=== PATIENT | male | born 1985 | race African-American/Black ===

== ENCOUNTER 2016-07-21 10:34 | Inpatient (IN) | payer OTHER ==
[2016-07-21 11:08] VITALS: BMI 37.5
--- NOTE | 2016-07-21 12:03 | HP ---
CIWA Score - CIWA Score Nausea/Vomitin-Mild Nausea/No Vomiting Muscle Tremors: 2 Anxiety: 4-Mod. Anxious/Guarded Agitation: 1-Slight > Activity Paroxysmal Sweats: 1-Minimal Palms Moist Orientation: 0-Oriented Tacttile Disturbances: 1-Very Mild Itch/Numbness Auditory Disturbances: 2-Mild Harshness/Frighten Visual Disturbances: 2-Mild Sensitivity Headache: 2-Mild CIWA-Ar Total Score: 16 Admission ROS BHS - HPI Chief Complaint: My chief technology officer said I need to be here Allergies/Adverse Reactions: Allergies Allergy/AdvReac Type Severity Reaction Status Date / Time Pork/Porcine Containing AdvReac Severe Nausea Verified 07/21/16 11:39 Products trazodone AdvReac Severe priapism Verified 07/21/16 11:39 History of Present Illness: 31 yo black gentleman here for detox from alcohol and crack use. Recently released from care home, relapsed with drugs use and chief technology officer recommended drug treatment. Previously here for detox and rehab - most recently 05/27/16. No seizures. Exam Limitations: Clinical Condition - Ebola screening Have you traveled outside of the country in the last 21 days: No Have you had contact with anyone from an Ebola affected area: No Have you been sick,other than usual withdrawal symptoms: No Do you have a fever: No - Review of Systems Constitutional: Chills, Loss of Appetite, Night Sweats, Changes in sleep, Weight Stable EENT: reports: Nose Congestion Respiratory: reports: Cough Cardiac: reports: No Symptoms Reported GI: reports: No Symptoms Reported : reports: No Symptoms Reported Musculoskeletal: reports: Back Pain Integumentary: reports: Dryness Neuro: reports: Headache Endocrine: reports: No Symptoms Reported Hematology: reports: No Symptoms Reported Psychiatric: reports: Judgement Intact, Mood/Affect Appropiate, Orientated x3, Anxious Other Systems: Reviewed and Negative Patient History - Patient Medical History Hx Anemia: No Hx Asthma: Yes Hx Chronic Obstructive Pulmonary Disease (COPD): No Hx Cancer: No Hx Cardiac Disorders: No Hx Congestive Heart Failure: No Hx Hypertension: No Hx Hypercholesterolemia: No Hx Pacemaker: No HX Cerebrovascular Accident: No Hx Seizures: Yes (as teenager due to head trauma) Hx Dementia: No Hx Diabetes: No Hx Gastrointestinal Disorders: No Hx Liver Disease: No Hx Genitourinary Disorders: No Hx Sexually Transmitted Disorders: No Hx Renal Disease (ESRD): No Hx Thyroid Disease: No Hx Human Immunodeficiency Virus (HIV): No (last 2016 negative) Hx Hepatitis C: No Hx Depression: No Hx Suicide Attempt: Yes (about 4 years ago - hospitalized) Hx Bipolar Disorder: Yes (WAS ON ABILIfY MANY YEARS AGO) Hx Schizophrenia: Yes Other Medical History: back pain, sciatica - Patient Surgical History Past Surgical History: Yes Hx Neurologic Surgery: No Hx Cataract Extraction: No Hx Cardiac Surgery: No Hx Lung Surgery: No Hx Breast Surgery: No Hx Breast Biopsy: No Hx Abdominal Surgery: No Hx Appendectomy: No Hx Cholecystectomy: No Hx Genitourinary Surgery: No Hx Section: No Hx Orthopedic Surgery: Yes (LEFT KNEE,TORN ACL AND MENISCUS since age 8 years) Anesthesia Reaction: No - PPD History Date: 05/29/16 Results: 0 mm - Reproductive History Patient is a Female of Child Bearing Age (11 -55 yrs old): No (male) - Smoking Cessation Smoking history: Current every day smoker Have you smoked in the past 12 months: Yes Aproximately how many cigarettes per day: 35 Cigars Per Day: 15 Hx Chewing Tobacco Use: No Initiated information on smoking cessation: Yes 'Breaking Loose' booklet given: 07/21/16 (given on admission to floor) - Substance & Tx. History Hx Alcohol Use: Yes Hx Substance Use: Yes Substance Use Type: Alcohol, Cocaine Hx Substance Use Treatment: Yes (detox, rehab) - Substances Abused Alcohol Route: Oral Frequency: Daily Amount used: beer2-3I(24 oz cans/2 -40 oz)/vodka(1-2 Pint) Age of first use: 13 Date of Last Use: 07/20/16 Crack Route: Smoking Frequency: Daily Amount used: $5000 per week Age of first use: 23 Date of Last Use: 07/20/16 Family Disease History - Family Disease History Family Disease History: Other: Father ( ? unkown), Mother (sciatica, ) Admission Physical Exam S - Vital Signs Vital Signs: Vital Signs - 24 hr 07/21/16 11:06 Temperature 97.9 F Pulse Rate 94 H Respiratory 20 Rate Blood Pressure 143/85 - Physical General Appearance: Yes: Nourished, Appropriately Dressed, Mild Distress HEENTM: Yes: Hearing grossly Normal, Normal ENT Inspection, Normocephalic, Normal Voice, Pharynx Normal, Nasal Congestion Respiratory: Yes: Normal Breath Sounds, No Respiratory Distress Neck: Yes: No masses,lesions,Nodules, Supple Breast: Yes: Breast Exam Deferred Cardiology: Yes: Regular Rhythm, Regular Rate Abdominal: Yes: Soft, Protuberent Genitourinary: Yes: Within Normal Limits Back: Yes: Normal Inspection Musculoskeletal: Yes: full range of Motion, Gait Steady Extremities: Yes: Normal Inspection, Normal Range of Motion Neurological: Yes: Fully Oriented, Alert, Normal Mood/Affect, Numbness, Other ( numbness of left leg sometimes due to sciatica) Integumentary: Yes: Normal Color, Dry, Warm Lymphatic: Yes: Within Normal Limits - Diagnostic (1) Obesity (BMI 30-39.9) Current Visit: Yes Status: Chronic (2) Alcohol dependence with uncomplicated withdrawal Current Visit: Yes Status: Chronic (3) Asthma Current Visit: Yes Status: Chronic Qualifiers: Asthma severity: mild intermittent (4) Cocaine dependence Current Visit: Yes Status: Chronic (5) Nicotine dependence Current Visit: Yes Status: Chronic (6) Sciatica Current Visit: Yes Status: Chronic Qualifiers: Laterality: left Qualified Code(s): M54.32 - Sciatica, left side Comment: takes gabapentin for sciatica (7) Syncope Current Visit: Yes Status: Chronic Cleared for Admission [facility] - Detox or Rehab [facility] Level of Care: Medically Managed Detox Regimen/Protocol: Librium [facility] Breath Alcohol Content Breath Alcohol Content: 0.045 Urine Drug Screen - Results Drug Screen Negative: No Urine Drug Screen Results: RICCARDO-Cocaine
[2016-07-21] MEDS ORDERED: diphenhydrAMINE HCL 50 MG CAPSULE PO PRN (12:17)
[2016-07-21] MEDS ORDERED: chlordiazePOXIDE HCL 25 MG CAPSULE PO ONE (12:17)
[2016-07-21] MEDS ORDERED: MAGNESIUM CITRATE 300 ML BOTTLE PO PRN (12:17)
[2016-07-21] MEDS ORDERED: hydrOXYzine PAMOATE 50 MG CAPSULE (FP) PO PRN (12:17)
[2016-07-21] MEDS ORDERED: LOPERAMIDE HCL 2 MG CAPSULE PO PRN (12:17)
[2016-07-21] MEDS ORDERED: guaiFENesin/D-METHORPHAN HB 10 ML UNIT-DOSE CUPS PO PRN (12:17)
[2016-07-21] MEDS ORDERED: MAGNESIUM HYDROX 2400MG/30ML ORAL SUSPENSION 30 ML CUP PO PRN (12:17)
[2016-07-21] MEDS ORDERED: ACETAMINOPHEN 325 MG TABLET (FP) PO PRN (12:17)
[2016-07-21] MEDS ORDERED: P-EPHED 60MG/TRIPROLIDI 2.5MG TABLET PO PRN (12:17)
[2016-07-21] MEDS ORDERED: chlordiazePOXIDE HCL 25 MG CAPSULE PO PRN (12:17)
[2016-07-21] MEDS ORDERED: ALBUTEROL SO4 6.7 GM HFA INHALER IH PRN (12:19)
[2016-07-21] MEDS: NICOTINE 21 MG/24 HOURS TOPICAL PATCH TD SCH (13:59)
[2016-07-21] MEDS: MENTHOL/PHENOL 1 EACH UD MM PRN ×2 (13:59→17:44)
[2016-07-21] MEDS: chlordiazePOXIDE HCL 25 MG CAPSULE PO SCH ×2 (17:40→23:09)
[2016-07-21] MEDS: IBUPROFEN 400 MG TABLET (FP) PO PRN (17:45)
[2016-07-21] MEDS: CYCLOBENZAPRINE HCL 10 MG TABLET (FP) PO PRN (17:45)
--- NOTE | 2016-07-21 18:13 | CONSULT ---
[facility] Psychiatric Consult - Data Date of interview: 07/21/16 Admission source: [facility] Identifying data: Readmission to [facility] for this 31 y/o AA male seeking detox treatment on [facility] for alcohol and cocaine dependence.Patient is single ( common-law relationship),a father of one,domiciled,unemployed and supporte on SSD benefits. Substance Abuse History: - Smoking Cessation. Smoking history: Current every day smoker. Have you smoked in the past 12 months: Yes. Aproximately how many cigarettes per day: 35. Cigars Per Day: 15. Hx Chewing Tobacco Use: No. Initiated information on smoking cessation: Yes. 'Breaking Loose' booklet given : 07/21/16 (given on admission to floor). - Substance & Tx. History. Hx Alcohol Use: Yes. Hx Substance Use: Yes. Substance Use Type: Alcohol, Cocaine. Hx Substance Use Treatment: Yes (detox, rehab). - Substances Abused. Alcohol. Route: Oral. Frequency: Daily. Amount used: beer2-3I(24 oz cans /2 -40 oz)/vodka(1-2 Pint). Age of first use: 13. Date of Last Use: 07/20/16. Crack. Route: Smoking. Frequency: Daily. Amount used: $5000 per week. Age of first use: 23. Date of Last Use: 07/20/16. Cnfirmed by patient. Medical History: Significant for a history of bronchial asthma,obesity,sciatica and orthosurgery for torn ACL/meniscus in left knee. Psychiatric History: Diagnosed with ADHD at age 3 (past treatment with ritalin) .Diagnosis was revised for Bipolar Disorder (age 18).Patient,in this interview, reports that he is diagnosed with " bipolar schizophrenic disorder " and PTSD.Noted history of multiple psychiatric hospitalizations ([facility] and [facility]).Recently admitted to [facility] (2013) for depression and suicidal ideation.Mr George admits to a well established history of non- adherence to medications and psychiatric outpatient services.Released from assisted a few weeks ago and mandated by his telecommunications officer for detox treatment.Patient states that he is on lithium carbonate 300 mg po bid.He sees a psychiatrist for medication management at the [facility].Has not taken his medication for " a little more over three weeks ".Patient remains evasive about history of suicide attempts (records yield evidence of multiple attempts via various means,including overdoses,self-mutilation and deliberate ingestion of toxic household chemicals). Physical/Sexual Abuse/Trauma History: Patient denies. Additional Comment: Urine Drug Screen Results: RICCARDO-Cocaine.Noted. Mental Status Exam - Mental Status Exam Alert and Oriented to: Time, Place, Person Cognitive Function: Good Patient Appearance: Well Groomed (tall stature,obese) Mood: Hopeful, Euthymic Affect: Appropriate, Normal Range Patient Behavior: Talkative, Appropriate, Cooperative Speech Pattern: Clear, Appropriate Voice Loudness: Normal Thought Process: Goal Oriented Thought Disorder: Not Present Hallucinations: Denies Suicidal Ideation: Denies Homicidal Ideation: Denies Insight/Judgement: Poor Sleep: Well Appetite: Good Muscle strength/Tone: Normal Gait/Station: Normal Psychiatric Findings - Problem List ([place] 1, 2,3) (1) Alcohol dependence with uncomplicated withdrawal Current Visit: Yes Status: Acute (2) Cocaine dependence Current Visit: Yes Status: Acute (3) Nicotine dependence Current Visit: Yes Status: Acute (4) Drug-induced mood disorder Current Visit: Yes Status: Acute (5) Schizoaffective disorder Current Visit: No Status: Suspected (6) Asthma Current Visit: Yes Status: Chronic Qualifiers: Asthma severity: mild intermittent (7) Obesity (BMI 30-39.9) Current Visit: Yes Status: Chronic (8) Sciatica Current Visit: Yes Status: Chronic Qualifiers: Laterality: left Qualified Code(s): M54.32 - Sciatica, left side Comment: takes gabapentin for sciatica (9) L4-L5 disc bulge Current Visit: No Status: Chronic (10) Non compliance w medication regimen Current Visit: Yes Status: Chronic - Initial Treatment Plan Initial Treatment Plan: Psychoeducation.Detoxification.[place] 300 mg po bid ( on hold until results of basic metabolic panel :electrolytes,renal function parameters).Side effects/benefits discussed with patient including risk of renal dysfunction,thyroid dysregulation,weight gain and cardiac issues.Patient responds that lithium is familiar medication (well tolerated) and he insists to resume care with lithium after a reported hiatus of three weeks.[place] level: pending.
[2016-07-21 19:12] LABS: URINE APPEARANCE CLEAR; URINE BILIRUBIN NEGATIVE (NEGATIVE); URINE BLOOD NEGATIVE (NEGATIVE); URINE COLOR YELLOW; URINE GLUCOSE (UA) NEGATIVE (NEGATIVE); URINE KETONE NEGATIVE (NEGATIVE); URINE LEUK ESTERASE NEGATIVE (NEGATIVE); URINE NITRITE NEGATIVE (NEGATIVE); URINE PROTEIN NEGATIVE (NEGATIVE); URINE UROBILINOGEN 2.0 E.U/dl E.U./dl (0.2-1.0)
[2016-07-21] MEDS: GABAPENTIN 400 MG CAPSULE (FP) PO SCH (23:09)
[2016-07-21] MEDS: THIAMINE HCL 100 MG TABLET (FP) PO SCH (23:09)
[2016-07-22] MEDS: chlordiazePOXIDE HCL 25 MG CAPSULE PO SCH ×4 (06:08→22:49)
[2016-07-22 10:22] LABS: MCH 29.7 pg (25.7-33.7); MCHC 32.4 g/dl (32.0-35.9); MEAN CELL VOLUME 91.6 fl (80-96); MEAN PLT VOLUME 7.9 fl (7.5-11.1); PLATELET COUNT 260 K/MM3 (134-434); RDW 15.1 % (11.9-15.9); WHITE BLOOD COUNT 6.9 K/mm3 (4.0-10.0)
[2016-07-22] MEDS: NICOTINE 21 MG/24 HOURS TOPICAL PATCH TD SCH (10:24)
[2016-07-22] MEDS: PRENATAL VITAMINS W/ FOLIC ACID TABLET (FP) PO SCH (10:24)
[2016-07-22] MEDS: GABAPENTIN 400 MG CAPSULE (FP) PO SCH ×2 (10:24→22:49)
[2016-07-22 10:43] LABS: ALBUMIN 3.2 g/dl (3.4-5.0); ALK PHOS 65 U/L (45-117); ANION GAP 5 (8-16); BILIRUBIN,TOTAL 0.2 mg/dL (0.2-1.0); CALCIUM 8.6 mg/dL (8.5-10.1); CO2 29 mmol/L (21-32); CREATININE 0.7 mg/dL (0.7-1.3); GLUCOSE,RANDOM 91 mg/dL (74-106); SGOT/AST 32 U/L (15-37); SGPT/ALT 26 U/L (12-78); TOT PROT 6.4 g/dl (6.4-8.2)
[2016-07-22 11:32] LABS: HIV 1 & 2 AB NEGATIVE; HIV 1 AGp24 NEGATIVE
--- NOTE | 2016-07-22 17:21 | PN ---
S CIWA - CIWA Score Nausea/Vomitin-Mild Nausea/No Vomiting Muscle Tremors: 4-Moderate,w/Arms Extend Anxiety: 4-Mod. Anxious/Guarded Agitation: 4-Moderately Restless Paroxysmal Sweats: No Perspiration Orientation: 0-Oriented Tacttile Disturbances: 1-Very Mild Itch/Numbness Auditory Disturbances: 0-None Visual Disturbances: 0-None Headache: 3-Moderate CIWA-Ar Total Score: 17 BHS Progress Note (SOAP) Subjective: Anxiety, sweating, nausea, tremor, interrupted sleep Objective: 07/22/16 17:20 Last Vital Signs Temp Pulse Resp BP Pulse Ox 97.0 F L 83 20 137/93 07/22/16 14:15 07/22/16 14:15 07/22/16 14:15 07/22/16 14:15 Laboratory Tests 07/21/16 07/22/16 07/22/16 Unknown 08:00 08:00 WBC 6.9 RBC 4.29 Hgb 12.8 Hct 39.3 MCV 91.6 MCHC 32.4 RDW 15.1 Plt Count 260 D MPV 7.9 Sodium Potassium Chloride Carbon Dioxide Anion Gap BUN Creatinine Creat Clearance w eGFR Random Glucose Calcium Total Bilirubin AST ALT Alkaline Phosphatase Total Protein Albumin Urine Color Yellow Urine Appearance Clear Urine pH 5.0 Ur Specific [place] 1.029 Urine Protein Negative Urine Glucose (UA) Negative Urine Ketones Negative Urine Blood Negative Urine Nitrite Negative Urine Bilirubin Negative Urine Urobilinogen 2.0 e.u/dl Ur Leukocyte Esterase Negative RPR Titer HIV 1&2 Antibody Screen Negative HIV P24 Antigen Negative 07/22/16 07/22/16 08:00 08:00 WBC RBC Hgb Hct MCV MCHC RDW Plt Count MPV Sodium 139 Potassium 4.2 Chloride 105 Carbon Dioxide 29 Anion Gap 5 L BUN 9 D Creatinine 0.7 D Creat Clearance w eGFR > 60 Random Glucose 91 Calcium 8.6 Total Bilirubin 0.2 D AST 32 D ALT 26 D Alkaline Phosphatase 65 Total Protein 6.4 Albumin 3.2 L Urine Color Urine Appearance Urine pH Ur Specific [place] Urine Protein Urine Glucose (UA) Urine Ketones Urine Blood Urine Nitrite Urine Bilirubin Urine Urobilinogen Ur Leukocyte Esterase RPR Titer Nonreactive HIV 1&2 Antibody Screen HIV P24 Antigen Labs noted Assessment: 07/22/16 17:21 Withdrawal symptoms Plan: Continue detox
[2016-07-22] MEDS: IBUPROFEN 400 MG TABLET (FP) PO PRN (17:51)
[2016-07-22] MEDS: MENTHOL/PHENOL 1 EACH UD MM PRN (17:51)
[2016-07-22] MEDS: CYCLOBENZAPRINE HCL 10 MG TABLET (FP) PO PRN (17:52)
[2016-07-22] MEDS: LITHIUM CARBONATE 300 MG CAPSULE (FP) PO SCH (22:49)
[2016-07-22] MEDS: THIAMINE HCL 100 MG TABLET (FP) PO SCH (22:49)
[2016-07-23] MEDS: chlordiazePOXIDE HCL 25 MG CAPSULE PO SCH ×2 (06:02→10:45)
[2016-07-23] MEDS: PRENATAL VITAMINS W/ FOLIC ACID TABLET (FP) PO SCH (10:45)
[2016-07-23] MEDS: LITHIUM CARBONATE 300 MG CAPSULE (FP) PO SCH ×2 (10:45→22:35)
[2016-07-23] MEDS: GABAPENTIN 400 MG CAPSULE (FP) PO SCH ×2 (10:45→22:35)
[2016-07-23] MEDS: NICOTINE 21 MG/24 HOURS TOPICAL PATCH TD SCH (10:47)
--- NOTE | 2016-07-23 10:57 | PN ---
S CIWA - CIWA Score Nausea/Vomitin-No Nausea/No Vomiting Muscle Tremors: 3 Anxiety: 3 Agitation: 4-Moderately Restless Paroxysmal Sweats: 3 Orientation: 0-Oriented Tacttile Disturbances: 2-Mild Itch/Numbness/Burn Auditory Disturbances: 0-None Visual Disturbances: 0-None Headache: 0-None Present CIWA-Ar Total Score: 15 BHS Progress Note (SOAP) Subjective: ANXIETY,TREMORS,SWEATING,LOW BACK PAIN,RESTLESS,INTERRUPTED SLEEP. Objective: 07/23/16 10:55 Vital Signs - 8 hr 07/23/16 07/23/16 07/23/16 03:21 06:20 10:23 Temperature 97.8 F 98.0 F Pulse Rate 95 H 109 H Respiratory 18 18 20 Rate Blood Pressure 132/81 138/83 Laboratory Tests 07/21/16 07/22/16 07/22/16 Unknown 08:00 08:00 WBC 6.9 RBC 4.29 Hgb 12.8 Hct 39.3 MCV 91.6 MCHC 32.4 RDW 15.1 Plt Count 260 D MPV 7.9 Sodium Potassium Chloride Carbon Dioxide Anion Gap BUN Creatinine Creat Clearance w eGFR Random Glucose Calcium Total Bilirubin AST ALT Alkaline Phosphatase Total Protein Albumin Urine Color Yellow Urine Appearance Clear Urine pH 5.0 Ur Specific [place] 1.029 Urine Protein Negative Urine Glucose (UA) Negative Urine Ketones Negative Urine Blood Negative Urine Nitrite Negative Urine Bilirubin Negative Urine Urobilinogen 2.0 e.u/dl Ur Leukocyte Esterase Negative RPR Titer HIV 1&2 Antibody Screen Negative HIV P24 Antigen Negative 07/22/16 07/22/16 08:00 08:00 WBC RBC Hgb Hct MCV MCHC RDW Plt Count MPV Sodium 139 Potassium 4.2 Chloride 105 Carbon Dioxide 29 Anion Gap 5 L BUN 9 D Creatinine 0.7 D Creat Clearance w eGFR > 60 Random Glucose 91 Calcium 8.6 Total Bilirubin 0.2 D AST 32 D ALT 26 D Alkaline Phosphatase 65 Total Protein 6.4 Albumin 3.2 L Urine Color Urine Appearance Urine pH Ur Specific [place] Urine Protein Urine Glucose (UA) Urine Ketones Urine Blood Urine Nitrite Urine Bilirubin Urine Urobilinogen Ur Leukocyte Esterase RPR Titer Nonreactive HIV 1&2 Antibody Screen HIV P24 Antigen LABS NOTED Assessment: 07/23/16 10:55 WITHDRAWAL SX. Plan: CONTINUE DETOX
[2016-07-23] MEDS: LIDOCAINE 5% TOPICAL PATCH TP SCH (11:10)
[2016-07-23 14:11] LABS: LITHIUM < 0.1 mmol/L (0.6-1.4)
[2016-07-23] MEDS: chlordiazePOXIDE 5 MG CAPSULE PO SCH (17:29)
[2016-07-23] MEDS: MAG HYDROX/AL HYDROX/SIMETH 30 ML UNIT-DOSE CUP PO PRN (19:48)
[2016-07-23] MEDS: THIAMINE HCL 100 MG TABLET (FP) PO SCH (22:36)
[2016-07-24] MEDS: chlordiazePOXIDE 5 MG CAPSULE PO SCH (05:50)
--- NOTE | 2016-07-24 10:02 | PN ---
BHS Progress Note (SOAP) Subjective: SLIGHT ANXIETY, SWEATS,FATIGUE. Objective: 07/24/16 10:02 Vital Signs Temperature 98.9 F 07/24/16 09:52 Pulse Rate 99 H 07/24/16 09:52 Respiratory Rate 20 07/24/16 09:52 Blood Pressure 124/78 07/24/16 09:52 O2 Sat by Pulse Oximetry (%) Assessment: 07/24/16 10:02 WITHDRAWAL SX Plan: CONTINUE DETOX
[2016-07-24] MEDS: PRENATAL VITAMINS W/ FOLIC ACID TABLET (FP) PO SCH (10:39)
[2016-07-24] MEDS: LITHIUM CARBONATE 300 MG CAPSULE (FP) PO SCH ×2 (10:39→22:29)
[2016-07-24] MEDS: GABAPENTIN 400 MG CAPSULE (FP) PO SCH ×2 (10:39→22:29)
[2016-07-24] MEDS: NICOTINE 21 MG/24 HOURS TOPICAL PATCH TD SCH (10:40)
[2016-07-24] MEDS: LIDOCAINE 5% TOPICAL PATCH TP SCH (10:40)
[2016-07-24] MEDS: chlordiazePOXIDE HCL 10 MG CAPSULE PO SCH ×2 (17:33→22:29)
[2016-07-24] MEDS: THIAMINE HCL 100 MG TABLET (FP) PO SCH (22:29)
[2016-07-24 23:02] VITALS: BP 129/77; PULSE 99; TEMP 97
[2016-07-25] MEDS: chlordiazePOXIDE HCL 10 MG CAPSULE PO SCH (05:40)
[2016-07-25] MEDS: IBUPROFEN 400 MG TABLET (FP) PO PRN (05:43)
[2016-07-25] MEDS: CYCLOBENZAPRINE HCL 10 MG TABLET (FP) PO PRN (05:43)
[2016-07-25] MEDS: MAG HYDROX/AL HYDROX/SIMETH 30 ML UNIT-DOSE CUP PO PRN (05:44)
--- NOTE | 2016-07-25 09:42 | EKG ---
Test Reason : Blood Pressure : / mmHG Vent. Rate : 084 BPM Atrial Rate : 084 BPM P-R Int : 178 ms QRS Dur : 088 ms QT Int : 394 ms P-R-T Axes : 043 011 030 degrees QTc Int : 465 ms NORMAL SINUS RHYTHM NORMAL ECG NO PREVIOUS ECGS AVAILABLE Confirmed by MING FREY, ANIBAL ([id number]) on 07/25/2016 9:42:30 AM Referred By: Confirmed By:ANIBAL LAI MD
--- NOTE | 2016-07-25 10:11 | DS ---
[facility] Detox Discharge Summary Admission Date: 07/21/16 Discharge Date: 07/25/16 - History Present History: Alcohol Dependence, Cocaine Dependence Additional Comments: NONE Pertinent Past History: ASTHMA HX L4-L5 DISC BULGE SCIATICA OBESITY MOOD DISORDER - Physical Exam Results Vital Signs: Vital Signs Temperature 97.0 F L 07/24/16 23:02 Pulse Rate 99 H 07/24/16 23:02 Respiratory Rate 22 07/25/16 03:30 Blood Pressure 129/77 07/24/16 23:02 O2 Sat by Pulse Oximetry (%) Pertinent Admission Physical Exam Findings: WITHDRAWAL SX - Treatment Hospital Course: Detox Protocol Followed, Detoxed Safely, Responded well, Discharged Condition Good - Medication Discharge Medications: Ambulatory Orders Cyclobenzaprine HCl [Flexeril -] 10 mg PO DAILY 11/22/14 Gabapentin [Neurontin] 800 mg PO BID 11/22/14 Albuterol Sulfate Inhaler - [Ventolin HFA Inhaler -] 2 inh IH Q4H PRN #0 Carrier Carbonate [Eskalith -] 300 mg PO BID 07/21/16 Carrier Carbonate [Eskalith -] 300 mg PO BID #30 capsule 07/24/16 - Diagnosis (1) Alcohol dependence with uncomplicated withdrawal Status: Acute (2) Nicotine dependence Status: Chronic (3) Asthma Status: Chronic Qualifiers: Asthma severity: mild intermittent (4) Obesity (BMI 30-39.9) Status: Chronic (5) Sciatica Status: Chronic Qualifiers: Laterality: left Qualified Code(s): M54.32 - Sciatica, left side - AMA Did Patient Leave Against Medical Advice: No
== END 2016-07-25 06:05 | disposition home or self-care (01) | DRG 897 ==
LOC: YASAS 10:34 → Y3N 12:50
PROVIDERS: ADMIT Internal Medicine; ATTEND Internal Medicine
PROC: HZ2ZZZZ Detoxification Services for Substance Abuse Treatment (ICD-10-PCS; principal; 2016-07-21)
DX: F10.230 Alcohol dependence with withdrawal, uncomplicated (principal); F14.20 Cocaine dependence, uncomplicated; F17.210 Nicotine dependence, cigarettes, uncomplicated; F19.24 Other psychoactive substance dependence with psychoactive substance-induced mood disorder; F25.9 Schizoaffective disorder, unspecified; J45.20 Mild intermittent asthma, uncomplicated; E66.9 Obesity, unspecified; Z68.37 Body mass index [BMI] 37.0-37.9, adult; M54.32 Sciatica, left side; M51.26 Other intervertebral disc displacement, lumbar region; Z86.69 Personal history of other diseases of the nervous system and sense organs; Z91.5 Personal history of self-harm; Z86.79 Personal history of other diseases of the circulatory system
CPT/HCPCS: 36415; 80048; 80053; 80178; 81003; 85027; 86593; 87389; 93005; 93010

== ENCOUNTER 2016-11-12 12:59 | Inpatient (IN) | payer OTHER ==
[2016-11-12 15:29] VITALS: BMI 39.0
--- NOTE | 2016-11-12 16:26 | HP ---
Admission ROS S - [facility] Chief Complaint: I AM GOING TO REHAB Allergies/Adverse Reactions: Allergies Allergy/AdvReac Type Severity Reaction Status Date / Time No Known Drug Allergies Allergy Verified 11/12/16 17:38 Pork/Porcine Containing AdvReac Severe Nausea Verified 11/12/16 15:52 Products trazodone AdvReac Severe priapism Verified 11/12/16 15:52 History of Present Illness: 31 YEARS OLD MALE WITH LONG HISTORY OF ALCOHOL NICOTINE COCAINE DEPENDENCE HAS CHRONIC BACK PAIN ASTHMA AND BIPOLAR II IS ADMITTED TO REHAB Exam Limitations: No Limitations - Ebola screening Have you traveled outside of the country in the last 21 days: No Have you had contact with anyone from an Ebola affected area: No Have you been sick,other than usual withdrawal symptoms: No Do you have a fever: No - Review of Systems Constitutional: Weight Stable EENT: reports: Sinus Pressure, Dental Problems (LEFT UPPER TOOTH CRACK) Respiratory: reports: No Symptoms reported Cardiac: reports: No Symptoms Reported GI: reports: No Symptoms Reported : reports: No Symptoms Reported Musculoskeletal: reports: Back Pain Integumentary: reports: No Symptoms Reported Neuro: reports: No Symptoms reported Endocrine: reports: No Symptoms Reported Hematology: reports: No Symptoms Reported Psychiatric: reports: Judgement Intact, Mood/Affect Appropiate, Orientated x3 Other Systems: Reviewed and Negative Patient History - Patient Medical History Hx Anemia: No Hx Asthma: Yes Hx Chronic Obstructive Pulmonary Disease (COPD): No Hx Cancer: No Hx Cardiac Disorders: No Hx Congestive Heart Failure: No Hx Hypertension: No Hx Hypercholesterolemia: No Hx Pacemaker: No HX Cerebrovascular Accident: No Hx Seizures: Yes (as teenager due to head trauma) Hx Dementia: No Hx Diabetes: No Hx Gastrointestinal Disorders: No Hx Liver Disease: No Hx Genitourinary Disorders: No Hx Sexually Transmitted Disorders: No Hx Renal Disease (ESRD): No Hx Thyroid Disease: No Hx Human Immunodeficiency Virus (HIV): No (last 2015 negative) Hx Hepatitis C: No Hx Depression: No Hx Suicide Attempt: Yes (about 4 years ago - hospitalized) Hx Bipolar Disorder: Yes (WAS ON ABILIfY MANY YEARS AGO) Hx Schizophrenia: Yes - Patient Surgical History Past Surgical History: Yes Hx Neurologic Surgery: No Hx Cataract Extraction: No Hx Cardiac Surgery: No Hx Lung Surgery: No Hx Breast Surgery: No Hx Breast Biopsy: No Hx Abdominal Surgery: No Hx Appendectomy: No Hx Cholecystectomy: No Hx Genitourinary Surgery: No Hx Orthopedic Surgery: Yes (LEFT KNEE,TORN ACL AND MENISCUS since age 8 years) Anesthesia Reaction: No - PPD History Previous Implant?: Yes Documented Results: Negative w/proof Implanted On Prior R Admission?: Yes Date: 05/29/16 Results: 0 mm PPD to be Administered?: No - Smoking Cessation Smoking history: Current every day smoker Have you smoked in the past 12 months: Yes Aproximately how many cigarettes per day: 35 Cigars Per Day: 15 Hx Chewing Tobacco Use: No Initiated information on smoking cessation: Yes 'Breaking Loose' booklet given: 11/12/16 - Substance & Tx. History Hx Alcohol Use: Yes Hx Substance Use: Yes Substance Use Type: Alcohol, Cocaine Hx Substance Use Treatment: Yes - Substances Abused Alcohol Route: Oral Frequency: Daily Amount used: [id number] Age of first use: 16 Date of Last Use: 11/05/16 Family Disease History - Family Disease History Family Disease History: Other: Father ( unkown), Mother (sciatica, ) Admission Physical Exam S - Vital Signs Vital Signs: Vital Signs - 24 hr 11/12/16 15:26 Temperature 98 F Pulse Rate 95 H Respiratory 20 Rate Blood Pressure 138/86 - Physical General Appearance: Yes: No Apparent Distress, Appropriately Dressed, Obese HEENTM: Yes: Hearing grossly Normal, Normal Voice, Scleral Ictenus L, Sinus Tenderness Respiratory: Yes: Chest Non-Tender, Lungs Clear, Normal Breath Sounds, No Respiratory Distress, No Accessory Muscle Use Neck: Yes: Supple, Trachea in good position Breast: Yes: Breasts Symetrical Cardiology: Yes: Regular Rhythm, S1, S2, Tachycardia Abdominal: Yes: Normal Bowel Sounds, Non Tender, Soft Genitourinary: Yes: Within Normal Limits Back: Yes: Normal Inspection Musculoskeletal: Yes: Back pain Extremities: Yes: Normal Inspection, Normal Range of Motion, Non-Tender Neurological: Yes: Fully Oriented, Alert, Motor Strength 5/5, Normal Mood/Affect , Normal Response Integumentary: Yes: Warm Lymphatic: Yes: Within Normal Limits - Diagnostic (1) Alcohol dependence with uncomplicated withdrawal Current Visit: Yes Status: Acute (2) Asthma Current Visit: Yes Status: Chronic Qualifiers: Asthma severity: mild intermittent Asthma complication type: with status asthmaticus Qualified Code(s): J45.22 - Mild intermittent asthma with status asthmaticus (3) Bipolar 1 disorder Current Visit: Yes Status: Suspected (4) Nicotine dependence Current Visit: Yes Status: Chronic (5) Chronic low back pain with left-sided sciatica Current Visit: Yes Status: Chronic Qualifiers: Back pain laterality: left Qualified Code(s): M54.42 - Lumbago with sciatica, left side; G89.29 - Other chronic pain (6) Tooth decay Current Visit: Yes Status: Chronic Cleared for Admission [facility] - Detox or Rehab [facility] Level of Care: Observation Bed Detox Regimen/Protocol: Not Applicable Claeared for Rehab Admission: Yes [facility] Breath Alcohol Content Breath Alcohol Content: 0 Urine Drug Screen - Results Drug Screen Negative: No Urine Drug Screen Results: RICCARDO-Cocaine
[2016-11-12] MEDS ORDERED: guaiFENesin/D-METHORPHAN HB 10 ML UNIT-DOSE CUPS PO PRN (16:31)
[2016-11-12] MEDS ORDERED: LOPERAMIDE HCL 2 MG CAPSULE PO PRN (16:31)
[2016-11-12] MEDS ORDERED: NICOTINE POLACRILEX 4 MG GUM BC PRN (16:31)
[2016-11-12] MEDS ORDERED: IBUPROFEN 400 MG TABLET (FP) PO PRN (16:31)
[2016-11-12] MEDS ORDERED: hydrOXYzine PAMOATE 50 MG CAPSULE (FP) PO PRN (16:31)
[2016-11-12] MEDS ORDERED: MENTHOL/PHENOL 1 EACH UD MM PRN (16:31)
[2016-11-12] MEDS ORDERED: MAGNESIUM CITRATE 300 ML BOTTLE PO PRN (16:31)
[2016-11-12] MEDS ORDERED: MAGNESIUM HYDROX 2400MG/30ML ORAL SUSPENSION 30 ML CUP PO PRN (16:31)
[2016-11-12] MEDS ORDERED: P-EPHED 60MG/TRIPROLIDI 2.5MG TABLET PO PRN (16:31)
[2016-11-12] MEDS ORDERED: MAG HYDROX/AL HYDROX/SIMETH 30 ML UNIT-DOSE CUP PO PRN (16:31)
[2016-11-12] MEDS ORDERED: ALBUTEROL SO4 6.7 GM HFA INHALER IH PRN (16:32)
[2016-11-12] MEDS ORDERED: ALBUTEROL SO4 2.5/IPRATROPIUM 0.5 INH SOL 3 ML VIAL.NEB. NEB PRN (16:33)
--- NOTE | 2016-11-12 20:48 | PN ---
S Progress Note Note: Psychiatry Attending's allergist/pediatric pulmonologist note : Called to enter order for lithium. No labs available.[place] is held.
[2016-11-12] MEDS: DOCUSATE SODIUM 100 MG CAPSULE (FP) PO SCH (21:43)
[2016-11-12] MEDS: THIAMINE HCL 100 MG TABLET (FP) PO SCH (21:43)
[2016-11-12] MEDS: carBAMazepine 200 MG TABLET PO SCH (21:44)
[2016-11-12] MEDS: LORATADINE 10 MG TABLET PO SCH (21:44)
[2016-11-12] MEDS: GABAPENTIN 400 MG CAPSULE (FP) PO SCH (21:44)
[2016-11-12] MEDS: diphenhydrAMINE HCL 50 MG CAPSULE PO PRN (21:45)
[2016-11-13] MEDS: GABAPENTIN 400 MG CAPSULE (FP) PO SCH ×3 (05:58→21:56)
[2016-11-13] MEDS: LIDOCAINE VISCOUS 2% ORAL/TOP 20 ML UNIT-DOSE CUP MM SCH ×3 (06:37→17:14)
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
[2016-11-13 10:01] LABS: MCH 30.2 pg (25.7-33.7); MCHC 32.6 g/dl (32.0-35.9); MEAN CELL VOLUME 92.5 fl (80-96); MEAN PLT VOLUME 7.7 fl (7.5-11.1); PLATELET COUNT 263 K/MM3 (134-434); WHITE BLOOD COUNT 10.3 K/mm3 (4.0-10.0)
[2016-11-13 10:20] LABS: ALBUMIN 3.2 g/dl (3.4-5.0); ALK PHOS 80 U/L (45-117); ANION GAP 12 (8-16); BILIRUBIN,TOTAL 0.2 mg/dL (0.2-1.0); CALCIUM 8.2 mg/dL (8.5-10.1); CO2 25 mmol/L (21-32); COCKROFT - GAULT 253.15; CREATININE 0.9 mg/dL (0.7-1.3); GLUCOSE,RANDOM 108 mg/dL (74-106); SGOT/AST 31 U/L (15-37); SGPT/ALT 34 U/L (12-78); TOT PROT 6.4 g/dl (6.4-8.2)
[2016-11-13] MEDS: PRENATAL VITAMINS W/ FOLIC ACID TABLET (FP) PO SCH (10:25)
[2016-11-13] MEDS ORDERED: PT OWN MED DRAWER 7, Y5N ONE ×3 (10:27→21:57)
[2016-11-13] MEDS: NICOTINE 21 MG/24 HOURS TOPICAL PATCH TD SCH (10:28)
[2016-11-13] MEDS: LIDOCAINE 5% TOPICAL PATCH TP SCH (10:29)
[2016-11-13] MEDS: carBAMazepine 200 MG TABLET PO SCH ×2 (12:25→21:57)
[2016-11-13 13:55] LABS: URINE APPEARANCE CLEAR; URINE BILIRUBIN NEGATIVE (NEGATIVE); URINE BLOOD NEGATIVE (NEGATIVE); URINE COLOR LTYELLOW; URINE GLUCOSE (UA) NEGATIVE (NEGATIVE); URINE KETONE NEGATIVE (NEGATIVE); URINE NITRITE NEGATIVE (NEGATIVE); URINE PROTEIN NEGATIVE (NEGATIVE); URINE UROBILINOGEN NEGATIVE E.U./dl (0.2-1.0)
[2016-11-13 14:00] LABS: URINE LEUK ESTERASE TRACE (NEGATIVE)
[2016-11-13 14:06] LABS: URINE BACTERIA RARE /hpf (NONE SEEN); URINE HYALINE CAST 1 /lpf; URINE MUCUS RARE; URINE RBC <1 /hpf (0-3); URINE WBC 3 /hpf (3-5)
[2016-11-13] MEDS: ACETAMINOPHEN 325 MG TABLET (FP) PO PRN (19:40)
[2016-11-13] MEDS: LORATADINE 10 MG TABLET PO SCH (21:54)
[2016-11-13] MEDS: THIAMINE HCL 100 MG TABLET (FP) PO SCH (21:57)
[2016-11-13] MEDS: DOCUSATE SODIUM 100 MG CAPSULE (FP) PO SCH (21:57)
[2016-11-13] MEDS: diphenhydrAMINE HCL 50 MG CAPSULE PO PRN (21:58)
[2016-11-13] MEDS ORDERED: LITHIUM CARBONATE 300 MG CAPSULE (FP) PO SCH (22:00)
--- NOTE | 2016-11-13 23:07 | EKG ---
Test Reason : Blood Pressure : / mmHG Vent. Rate : 078 BPM Atrial Rate : 078 BPM P-R Int : 194 ms QRS Dur : 094 ms QT Int : 400 ms P-R-T Axes : 028 033 025 degrees QTc Int : 456 ms NORMAL SINUS RHYTHM NORMAL ECG WHEN COMPARED WITH ECG OF 12-NOV-2016 20:17, NO SIGNIFICANT CHANGE WAS FOUND Confirmed by WINNIE HERNANDEZ MD ([id number]) on 11/13/2016 11:06:47 PM Referred By: Liane Cárdenas Confirmed By:WINNIE HERNANDEZ MD
--- NOTE | 2016-11-13 23:08 | EKG ---
Test Reason : Blood Pressure : / mmHG Vent. Rate : 095 BPM Atrial Rate : 095 BPM P-R Int : 226 ms QRS Dur : 096 ms QT Int : 374 ms P-R-T Axes : 043 016 026 degrees QTc Int : 469 ms SINUS RHYTHM WITH 1ST DEGREE A-V BLOCK OTHERWISE NORMAL ECG WHEN COMPARED WITH ECG OF 21-JUL-2016 21:14, [place] INTERVAL HAS INCREASED Confirmed by DAVID FREY, WINNIE ([id number]) on 11/13/2016 11:07:45 PM Referred By: Liane Cárdenas Confirmed By:WINNIE HERNANDEZ MD
[2016-11-14] MEDS: GABAPENTIN 400 MG CAPSULE (FP) PO SCH ×2 (06:08→14:08)
[2016-11-14] MEDS ORDERED: LITHIUM CARBONATE 300 MG CAPSULE (FP) PO SCH (07:00)
[2016-11-14] MEDS: LIDOCAINE VISCOUS 2% ORAL/TOP 20 ML UNIT-DOSE CUP MM SCH ×3 (07:13→17:31)
[2016-11-14] MEDS ORDERED: PT OWN MED DRAWER 7, Y5N ONE (09:08)
[2016-11-14] MEDS: carBAMazepine 200 MG TABLET PO SCH (09:25)
[2016-11-14] MEDS: PRENATAL VITAMINS W/ FOLIC ACID TABLET (FP) PO SCH (09:25)
[2016-11-14] MEDS: ACETAMINOPHEN 325 MG TABLET (FP) PO PRN (09:25)
[2016-11-14] MEDS: NICOTINE 21 MG/24 HOURS TOPICAL PATCH TD SCH (09:25)
[2016-11-14] MEDS: LIDOCAINE 5% TOPICAL PATCH TP SCH (09:26)
[2016-11-14 10:34] VITALS: BP 121/68; PULSE 86; TEMP 98.7
== END 2016-11-14 19:40 | disposition left against medical advice (07) | DRG 894 ==
LOC: YASAS 12:59 → Y3W 19:02
PROVIDERS: ADMIT Psychiatry & Neurology Psychiatry; ATTEND Psychiatry & Neurology Psychiatry
PROC: HZ42ZZZ Group Counseling for Substance Abuse Treatment, Cognitive-Behavioral (ICD-10-PCS; principal; 2016-11-12)
DX: F10.20 Alcohol dependence, uncomplicated (principal); J45.22 Mild intermittent asthma with status asthmaticus; F17.210 Nicotine dependence, cigarettes, uncomplicated; F31.9 Bipolar disorder, unspecified; F25.9 Schizoaffective disorder, unspecified; M54.42 Lumbago with sciatica, left side; G89.29 Other chronic pain; R00.0 Tachycardia, unspecified; E66.9 Obesity, unspecified; Z68.39 Body mass index [BMI] 39.0-39.9, adult; M51.26 Other intervertebral disc displacement, lumbar region; K02.9 Dental caries, unspecified; Z91.5 Personal history of self-harm
CPT/HCPCS: 36415; 80053; 80156; 80178; 81003; 81015; 85027; 86593; 93005; 93010

== ENCOUNTER 2016-12-31 10:10 | Inpatient (IN) | payer MEDICARE ==
[2016-12-31 11:01] VITALS: BMI 38.2
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
[2016-12-31] MEDS ORDERED: MAGNESIUM HYDROX 2400MG/30ML ORAL SUSPENSION 30 ML CUP PO PRN (13:14)
[2016-12-31] MEDS ORDERED: MENTHOL/PHENOL 1 EACH UD MM PRN (13:14)
[2016-12-31] MEDS ORDERED: guaiFENesin/D-METHORPHAN HB 10 ML UNIT-DOSE CUPS PO PRN (13:14)
[2016-12-31] MEDS ORDERED: LOPERAMIDE HCL 2 MG CAPSULE PO PRN (13:14)
[2016-12-31] MEDS ORDERED: ACETAMINOPHEN 325 MG TABLET (FP) PO PRN (13:14)
[2016-12-31] MEDS ORDERED: MAGNESIUM CITRATE 300 ML BOTTLE PO PRN (13:14)
[2016-12-31] MEDS ORDERED: P-EPHED 60MG/TRIPROLIDI 2.5MG TABLET PO PRN (13:14)
[2016-12-31] MEDS ORDERED: diphenhydrAMINE HCL 50 MG CAPSULE PO PRN (13:14)
[2016-12-31] MEDS ORDERED: ALBUTEROL SO4 6.7 GM HFA INHALER IH PRN (13:16)
[2016-12-31] MEDS ORDERED: NICOTINE POLACRILEX 4 MG GUM BUC PRN (13:16)
[2016-12-31] MEDS ORDERED: LIDOCAINE VISCOUS 2% ORAL/TOP 20 ML UNIT-DOSE CUP MM PRN (13:24)
--- NOTE | 2016-12-31 13:35 | CONSULT ---
[facility] Psychiatric Consult - Data Date of interview: 12/31/16 Admission source: [facility] Identifying data: This is 31 years old male with history of psychiatric hospitalizations, history of Bipolar disorder intoxiocated with: Crack, Alcohol and Nicotine Substance Abuse History: - Smoking Cessation. Smoking history: Current every day smoker. Have you smoked in the past 12 months: Yes. Aproximately how many cigarettes per day: 35. Cigars Per Day: 15. Hx Chewing Tobacco Use: No. Initiated information on smoking cessation: Yes. 'Breaking Loose' booklet given : 12/31/16. - Substance & Tx. History. Hx Alcohol Use: Yes. Hx Substance Use : Yes. Substance Use Type: Alcohol, Cocaine. Hx Substance Use Treatment: Yes. - Substances Abused. Alcohol. Route: Oral. Frequency: Daily. Amount used: 1-2 40 OZ BEER/ 1 PINT VODKA. Age of first use: 16. Date of Last Use: . Crack. Route: Smoking. Frequency: Daily. Amount used: $500. Age of first use: 16. Date of Last Use: 12/30/16 Medical History: Asthma, Obesity, LBP, Sciatica, Syncope history Psychiatric History: Patient reprots to carry Bipolar disorder, reports most recent psychiatric admission at [facility] for safety, reportys taking prior to admission: Zoloft 50mg poqd. Prazosin 1mg po qhs. Gabapentin 800mg po tid Physical/Sexual Abuse/Trauma History: Denies Additional Comment: Zoloft 50mg poqd. Prazosin 1mg po qhs. Gabapentin 800mg po tid Mental Status Exam - Mental Status Exam Alert and Oriented to: Person Cognitive Function: Fair Patient Appearance: Unkempt Mood: Anxious Affect: Mood Congruent Patient Behavior: Cooperative Speech Pattern: Appropriate Voice Loudness: Normal Thought Process: Goal Oriented Thought Disorder: Being Controlled Hallucinations: Denies Suicidal Ideation: Denies Homicidal Ideation: Denies Insight/Judgement: Fair Sleep: Difficulty falling asleep Appetite: Weight gain Muscle strength/Tone: Normal Gait/Station: Normal Additional Comments: Zoloft 50mg poqd. Prazosin 1mg po qhs. Gabapentin 800mg po tid Psychiatric Findings - Problem List ([place] 1, 2,3) (1) Alcohol dependence with uncomplicated withdrawal Current Visit: Yes Status: Chronic (2) Bipolar disorder Current Visit: Yes Status: Chronic Qualifiers: Current bipolar episode type: depressed (3) Cocaine dependence Current Visit: Yes Status: Chronic (4) Nicotine dependence Current Visit: Yes Status: Chronic (5) Drug-induced mood disorder Current Visit: No Status: Acute (6) Cannabis dependence Current Visit: No Status: Chronic (7) Non compliance w medication regimen Current Visit: No Status: Chronic - Initial Treatment Plan Initial Treatment Plan: Zoloft 50mg poqd. Prazosin 1mg po qhs. Gabapentin 800mg po tid
[2016-12-31] MEDS ORDERED: LIDOCAINE 5% TOPICAL PATCH TP ONE (13:45)
[2016-12-31] MEDS: chlordiazePOXIDE HCL 25 MG CAPSULE PO PRN (14:42)
[2016-12-31] MEDS: GABAPENTIN 400 MG CAPSULE (FP) PO SCH ×2 (14:44→22:16)
[2016-12-31] MEDS: SERTRALINE HCL 50 MG TABLET (FP) PO SCH ×2 (15:48→15:55)
[2016-12-31 17:07] LABS: HIV 1 & 2 AB NEGATIVE; HIV 1 AGp24 NEGATIVE
[2016-12-31 17:51] LABS: URINE APPEARANCE CLEAR; URINE BILIRUBIN NEGATIVE (NEGATIVE); URINE BLOOD NEGATIVE (NEGATIVE); URINE COLOR YELLOW; URINE GLUCOSE (UA) NEGATIVE (NEGATIVE); URINE KETONE TRACE (NEGATIVE); URINE LEUK ESTERASE NEGATIVE (NEGATIVE); URINE NITRITE NEGATIVE (NEGATIVE); URINE UROBILINOGEN NEGATIVE E.U./dl (0.2-1.0)
[2016-12-31 17:58] LABS: URINE PROTEIN 1+ (NEGATIVE)
[2016-12-31 18:10] LABS: URINE HYALINE CAST 7 /lpf; URINE MUCUS MANY; URINE RBC 2 /hpf (0-3); URINE WBC 2 /hpf (3-5)
[2016-12-31] MEDS: chlordiazePOXIDE HCL 25 MG CAPSULE PO SCH ×2 (19:22→22:16)
[2016-12-31] MEDS ORDERED: LIDOCAINE PATCH REMOVAL MC SCH (22:00)
[2016-12-31] MEDS: CLOTRIMAZOLE 1%TOPICAL SOLUTION 30 ML BOTTLE TP SCH ×2 (22:14→23:05)
[2016-12-31] MEDS: PRAZOSIN HCL 1 MG CAPSULE PO SCH (22:16)
[2016-12-31] MEDS: carBAMazepine 200 MG TABLET PO SCH (22:16)
[2016-12-31] MEDS: THIAMINE HCL 100 MG TABLET (FP) PO SCH (22:16)
[2016-12-31] MEDS: LIDOCAINE PATCH REMOVAL MC SCH (23:05)
[2017-01-01] MEDS: IBUPROFEN 400 MG TABLET (FP) PO PRN (03:03)
[2017-01-01] MEDS: MAG HYDROX/AL HYDROX/SIMETH 30 ML UNIT-DOSE CUP PO PRN (03:03)
[2017-01-01] MEDS: chlordiazePOXIDE HCL 25 MG CAPSULE PO SCH ×4 (06:05→22:09)
[2017-01-01] MEDS: GABAPENTIN 400 MG CAPSULE (FP) PO SCH ×4 (07:20→22:09)
[2017-01-01 09:48] LABS: MCH 29.1 pg (25.7-33.7); MCHC 32.1 g/dl (32.0-35.9); MEAN CELL VOLUME 90.7 fl (80-96); MEAN PLT VOLUME 8.3 fl (7.5-11.1); PLATELET COUNT 292 K/MM3 (134-434); RDW 15.2 % (11.9-15.9); WHITE BLOOD COUNT 12.4 K/mm3 (4.0-10.0)
[2017-01-01 10:00] LABS: ALBUMIN 3.7 g/dl (3.4-5.0)
[2017-01-01 10:05] LABS: ALK PHOS 95 U/L (45-117); ANION GAP 8 (8-16); BILIRUBIN,TOTAL 0.3 mg/dL (0.2-1.0); CALCIUM 8.9 mg/dL (8.5-10.1); CO2 28 mmol/L (21-32); GLUCOSE,RANDOM 95 mg/dL (74-106); SGOT/AST 34 U/L (15-37); SGPT/ALT 41 U/L (12-78); TOT PROT 7.5 g/dl (6.4-8.2)
--- NOTE | 2017-01-01 11:27 | PN ---
[facility] CIWA - CIWA Score Nausea/Vomitin-No Nausea/No Vomiting Muscle Tremors: 4-Moderate,w/Arms Extend Anxiety: 4-Mod. Anxious/Guarded Agitation: 4-Moderately Restless Paroxysmal Sweats: 1-Minimal Palms Moist Orientation: 0-Oriented Tacttile Disturbances: 3-Moderate Itch/Numb/Burn Auditory Disturbances: 0-None Visual Disturbances: 0-None Headache: 0-None Present CIWA-Ar Total Score: 16 BHS Progress Note (SOAP) Subjective: ANXIETY,SWEATS,SLIGHT TREMORS. Objective: 01/01/17 11:27 Vital Signs Temperature 97.1 F L 01/01/17 09:28 Pulse Rate 79 01/01/17 09:28 Respiratory Rate 18 01/01/17 09:28 Blood Pressure 130/84 01/01/17 09:28 O2 Sat by Pulse Oximetry (%) Laboratory Last Values WBC 12.4 K/mm3 (4.0-10.0) H 01/01/17 06:00 RBC 4.40 M/mm3 (4.00-5.60) 01/01/17 06:00 Hgb 12.8 GM/dL (11.7-16.9) 01/01/17 06:00 Hct 39.9 % (35.4-49) 01/01/17 06:00 MCV 90.7 fl (80-96) 01/01/17 06:00 MCHC 32.1 g/dl (32.0-35.9) 01/01/17 06:00 RDW 15.2 % (11.9-15.9) 01/01/17 06:00 Plt Count 292 K/MM3 (134-434) 01/01/17 06:00 MPV 8.3 fl (7.5-11.1) 01/01/17 06:00 Sodium 140 mmol/L (136-145) 01/01/17 06:00 Potassium 4.1 mmol/L (3.5-5.1) 01/01/17 06:00 Chloride 104 mmol/L (98-107) 01/01/17 06:00 Carbon Dioxide 28 mmol/L (21-32) 01/01/17 06:00 Anion Gap 8 (8-16) 01/01/17 06:00 BUN 9 mg/dL (7-18) 01/01/17 06:00 Creatinine 1.0 mg/dL (0.7-1.3) 01/01/17 06:00 Creat Clearance w eGFR > 60 (>60) 01/01/17 06:00 Random Glucose 95 mg/dL (74-106) 01/01/17 06:00 Calcium 8.9 mg/dL (8.5-10.1) 01/01/17 06:00 Total Bilirubin 0.3 mg/dL (0.2-1.0) D 01/01/17 06:00 AST 34 U/L (15-37) 01/01/17 06:00 ALT 41 U/L (12-78) D 01/01/17 06:00 Alkaline Phosphatase 95 U/L (45-117) 01/01/17 06:00 Total Protein 7.5 g/dl (6.4-8.2) 01/01/17 06:00 Albumin 3.7 g/dl (3.4-5.0) 01/01/17 06:00 Urine Color Yellow 12/31/16 15:00 Urine Appearance Clear 12/31/16 15:00 Urine pH 5.0 (5.0-8.0) 12/31/16 15:00 Ur Specific [place] >= 1.030 (1.005-1.025) H 12/31/16 15:00 Urine Protein 1+ (NEGATIVE) H 12/31/16 15:00 Urine Glucose (UA) Negative (NEGATIVE) 12/31/16 15:00 Urine Ketones Trace (NEGATIVE) H 12/31/16 15:00 Urine Blood Negative (NEGATIVE) 12/31/16 15:00 Urine Nitrite Negative (NEGATIVE) 12/31/16 15:00 Urine Bilirubin Negative (NEGATIVE) 12/31/16 15:00 Urine Urobilinogen Negative E.U./dl (0.2-1.0) 12/31/16 15:00 Ur Leukocyte Esterase Negative (NEGATIVE) 12/31/16 15:00 Urine RBC 2 /hpf (0-3) 12/31/16 15:00 Urine WBC 2 /hpf (3-5) 12/31/16 15:00 Ur Epithelial Cells Rare /hpf (FEW) 12/31/16 15:00 Hyaline Casts 7 /lpf 12/31/16 15:00 Urine Mucus Many 12/31/16 15:00 HIV 1&2 Antibody Screen Negative 12/31/16 12:00 HIV P24 Antigen Negative 12/31/16 12:00 Assessment: 01/01/17 11:27 WITHDRAWAL SX Plan: CONTINUE DETOX
[2017-01-01] MEDS: PRENATAL VITAMINS W/ FOLIC ACID TABLET (FP) PO SCH (12:24)
[2017-01-01] MEDS: SERTRALINE HCL 50 MG TABLET (FP) PO SCH (12:26)
[2017-01-01] MEDS: CLOTRIMAZOLE 1%TOPICAL SOLUTION 30 ML BOTTLE TP SCH ×2 (12:35→23:36)
[2017-01-01] MEDS: NICOTINE 21 MG/24 HOURS TOPICAL PATCH TD SCH (12:35)
[2017-01-01] MEDS: LIDOCAINE 5% TOPICAL PATCH TP SCH (12:36)
--- NOTE | 2017-01-01 14:47 | EKG ---
Test Reason : Blood Pressure : / mmHG Vent. Rate : 075 BPM Atrial Rate : 075 BPM P-R Int : 194 ms QRS Dur : 096 ms QT Int : 402 ms P-R-T Axes : 020 015 024 degrees QTc Int : 448 ms NORMAL SINUS RHYTHM NORMAL ECG WHEN COMPARED WITH ECG OF 13-NOV-2016 04:41, NO SIGNIFICANT CHANGE WAS FOUND Confirmed by WINNIE HERNANDEZ MD ([id number]) on 01/01/2017 2:47:25 PM Referred By: Gunnar Granger Confirmed By:WINNIE HERNANDEZ MD
[2017-01-01] MEDS: carBAMazepine 200 MG TABLET PO SCH ×3 (15:32→22:10)
[2017-01-01] MEDS ORDERED: AMOX TR/POT CLAV 875MG/125MG TABLETS (FP) PO ONE (15:45)
[2017-01-01] MEDS: AMOX TR/POT CLAV 875MG/125MG TABLETS (FP) PO SCH ×2 (17:58→19:35)
[2017-01-01] MEDS: PRAZOSIN HCL 1 MG CAPSULE PO SCH (22:10)
[2017-01-01] MEDS: THIAMINE HCL 100 MG TABLET (FP) PO SCH (22:10)
[2017-01-01] MEDS: LIDOCAINE PATCH REMOVAL MC SCH (23:35)
[2017-01-02] MEDS: chlordiazePOXIDE HCL 25 MG CAPSULE PO SCH ×2 (06:21→10:08)
[2017-01-02] MEDS: MAG HYDROX/AL HYDROX/SIMETH 30 ML UNIT-DOSE CUP PO PRN (06:54)
[2017-01-02] MEDS: chlordiazePOXIDE HCL 25 MG CAPSULE PO PRN (06:54)
[2017-01-02] MEDS: GABAPENTIN 400 MG CAPSULE (FP) PO SCH ×3 (06:55→22:09)
[2017-01-02] MEDS: IBUPROFEN 400 MG TABLET (FP) PO PRN (06:55)
[2017-01-02] MEDS: AMOX TR/POT CLAV 875MG/125MG TABLETS (FP) PO SCH ×2 (07:47→17:04)
--- NOTE | 2017-01-02 09:54 | PN ---
[facility] CIWA - CIWA Score Nausea/Vomitin-No Nausea/No Vomiting Muscle Tremors: 4-Moderate,w/Arms Extend Anxiety: 4-Mod. Anxious/Guarded Agitation: 4-Moderately Restless Paroxysmal Sweats: 1-Minimal Palms Moist Orientation: 0-Oriented Tacttile Disturbances: 3-Moderate Itch/Numb/Burn Auditory Disturbances: 0-None Visual Disturbances: 0-None Headache: 0-None Present CIWA-Ar Total Score: 16 BHS Progress Note (SOAP) Subjective: ANXIETY,SWEATS,TOOTH ACHE PERSISTS. Objective: 01/02/17 09:54 Vital Signs Temperature 96.8 F L 01/02/17 09:33 Pulse Rate 84 01/02/17 09:33 Respiratory Rate 18 01/02/17 09:33 Blood Pressure 137/78 01/02/17 09:33 O2 Sat by Pulse Oximetry (%) Laboratory Last Values WBC 12.4 K/mm3 (4.0-10.0) H 01/01/17 06:00 RBC 4.40 M/mm3 (4.00-5.60) 01/01/17 06:00 Hgb 12.8 GM/dL (11.7-16.9) 01/01/17 06:00 Hct 39.9 % (35.4-49) 01/01/17 06:00 MCV 90.7 fl (80-96) 01/01/17 06:00 MCHC 32.1 g/dl (32.0-35.9) 01/01/17 06:00 RDW 15.2 % (11.9-15.9) 01/01/17 06:00 Plt Count 292 K/MM3 (134-434) 01/01/17 06:00 MPV 8.3 fl (7.5-11.1) 01/01/17 06:00 Sodium 140 mmol/L (136-145) 01/01/17 06:00 Potassium 4.1 mmol/L (3.5-5.1) 01/01/17 06:00 Chloride 104 mmol/L (98-107) 01/01/17 06:00 Carbon Dioxide 28 mmol/L (21-32) 01/01/17 06:00 Anion Gap 8 (8-16) 01/01/17 06:00 BUN 9 mg/dL (7-18) 01/01/17 06:00 Creatinine 1.0 mg/dL (0.7-1.3) 01/01/17 06:00 Creat Clearance w eGFR > 60 (>60) 01/01/17 06:00 Random Glucose 95 mg/dL (74-106) 01/01/17 06:00 Calcium 8.9 mg/dL (8.5-10.1) 01/01/17 06:00 Total Bilirubin 0.3 mg/dL (0.2-1.0) D 01/01/17 06:00 AST 34 U/L (15-37) 01/01/17 06:00 ALT 41 U/L (12-78) D 01/01/17 06:00 Alkaline Phosphatase 95 U/L (45-117) 01/01/17 06:00 Total Protein 7.5 g/dl (6.4-8.2) 01/01/17 06:00 Albumin 3.7 g/dl (3.4-5.0) 01/01/17 06:00 Urine Color Yellow 12/31/16 15:00 Urine Appearance Clear 12/31/16 15:00 Urine pH 5.0 (5.0-8.0) 12/31/16 15:00 Ur Specific [place] >= 1.030 (1.005-1.025) H 12/31/16 15:00 Urine Protein 1+ (NEGATIVE) H 12/31/16 15:00 Urine Glucose (UA) Negative (NEGATIVE) 12/31/16 15:00 Urine Ketones Trace (NEGATIVE) H 12/31/16 15:00 Urine Blood Negative (NEGATIVE) 12/31/16 15:00 Urine Nitrite Negative (NEGATIVE) 12/31/16 15:00 Urine Bilirubin Negative (NEGATIVE) 12/31/16 15:00 Urine Urobilinogen Negative E.U./dl (0.2-1.0) 12/31/16 15:00 Ur Leukocyte Esterase Negative (NEGATIVE) 12/31/16 15:00 Urine RBC 2 /hpf (0-3) 12/31/16 15:00 Urine WBC 2 /hpf (3-5) 12/31/16 15:00 Ur Epithelial Cells Rare /hpf (FEW) 12/31/16 15:00 Hyaline Casts 7 /lpf 12/31/16 15:00 Urine Mucus Many 12/31/16 15:00 Carbamazepine 3.9 ug/ml (4.0-12.0) L 01/01/17 06:00 RPR Titer Nonreactive (NONREACTIVE) 01/01/17 06:00 HIV 1&2 Antibody Screen Negative 12/31/16 12:00 HIV P24 Antigen Negative 12/31/16 12:00 Assessment: 01/02/17 09:55 WITHDRAWAL SX Plan: CONTINUE DETOX MOTRIN PRN
[2017-01-02] MEDS: LIDOCAINE 5% TOPICAL PATCH TP SCH (10:02)
[2017-01-02] MEDS: NICOTINE 21 MG/24 HOURS TOPICAL PATCH TD SCH (10:03)
[2017-01-02] MEDS: PRENATAL VITAMINS W/ FOLIC ACID TABLET (FP) PO SCH (10:04)
[2017-01-02] MEDS: SERTRALINE HCL 50 MG TABLET (FP) PO SCH (10:05)
[2017-01-02] MEDS: carBAMazepine 200 MG TABLET PO SCH ×2 (10:06→22:09)
[2017-01-02] MEDS: CLOTRIMAZOLE 1%TOPICAL SOLUTION 30 ML BOTTLE TP SCH ×2 (10:07→22:10)
[2017-01-02] MEDS: chlordiazePOXIDE 5 MG CAPSULE PO SCH ×2 (17:03→22:09)
[2017-01-02] MEDS: THIAMINE HCL 100 MG TABLET (FP) PO SCH (22:09)
[2017-01-02] MEDS: PRAZOSIN HCL 1 MG CAPSULE PO SCH (22:10)
[2017-01-02] MEDS: LIDOCAINE PATCH REMOVAL MC SCH (22:10)
[2017-01-03] MEDS: chlordiazePOXIDE 5 MG CAPSULE PO SCH (05:50)
[2017-01-03] MEDS: IBUPROFEN 400 MG TABLET (FP) PO PRN (05:50)
[2017-01-03] MEDS: GABAPENTIN 400 MG CAPSULE (FP) PO SCH (05:50)
[2017-01-03] MEDS: AMOX TR/POT CLAV 875MG/125MG TABLETS (FP) PO SCH (07:43)
--- NOTE | 2017-01-03 09:40 | PN ---
S Progress Note (SOAP) Subjective: DECREASED ANXIETY,TREMORS,SWEATS. OOB ON HALLWAY AND ACTIVITIES. Objective: 01/03/17 09:39 Vital Signs Temperature 97.8 F 01/03/17 06:46 Pulse Rate 88 01/03/17 06:46 Respiratory Rate 18 01/03/17 06:46 Blood Pressure 120/80 01/03/17 06:46 O2 Sat by Pulse Oximetry (%) Laboratory Last Values WBC 12.4 K/mm3 (4.0-10.0) H 01/01/17 06:00 RBC 4.40 M/mm3 (4.00-5.60) 01/01/17 06:00 Hgb 12.8 GM/dL (11.7-16.9) 01/01/17 06:00 Hct 39.9 % (35.4-49) 01/01/17 06:00 MCV 90.7 fl (80-96) 01/01/17 06:00 MCHC 32.1 g/dl (32.0-35.9) 01/01/17 06:00 RDW 15.2 % (11.9-15.9) 01/01/17 06:00 Plt Count 292 K/MM3 (134-434) 01/01/17 06:00 MPV 8.3 fl (7.5-11.1) 01/01/17 06:00 Sodium 140 mmol/L (136-145) 01/01/17 06:00 Potassium 4.1 mmol/L (3.5-5.1) 01/01/17 06:00 Chloride 104 mmol/L (98-107) 01/01/17 06:00 Carbon Dioxide 28 mmol/L (21-32) 01/01/17 06:00 Anion Gap 8 (8-16) 01/01/17 06:00 BUN 9 mg/dL (7-18) 01/01/17 06:00 Creatinine 1.0 mg/dL (0.7-1.3) 01/01/17 06:00 Creat Clearance w eGFR > 60 (>60) 01/01/17 06:00 Random Glucose 95 mg/dL (74-106) 01/01/17 06:00 Calcium 8.9 mg/dL (8.5-10.1) 01/01/17 06:00 Total Bilirubin 0.3 mg/dL (0.2-1.0) D 01/01/17 06:00 AST 34 U/L (15-37) 01/01/17 06:00 ALT 41 U/L (12-78) D 01/01/17 06:00 Alkaline Phosphatase 95 U/L (45-117) 01/01/17 06:00 Total Protein 7.5 g/dl (6.4-8.2) 01/01/17 06:00 Albumin 3.7 g/dl (3.4-5.0) 01/01/17 06:00 Urine Color Yellow 12/31/16 15:00 Urine Appearance Clear 12/31/16 15:00 Urine pH 5.0 (5.0-8.0) 12/31/16 15:00 Ur Specific [place] >= 1.030 (1.005-1.025) H 12/31/16 15:00 Urine Protein 1+ (NEGATIVE) H 12/31/16 15:00 Urine Glucose (UA) Negative (NEGATIVE) 12/31/16 15:00 Urine Ketones Trace (NEGATIVE) H 12/31/16 15:00 Urine Blood Negative (NEGATIVE) 12/31/16 15:00 Urine Nitrite Negative (NEGATIVE) 12/31/16 15:00 Urine Bilirubin Negative (NEGATIVE) 12/31/16 15:00 Urine Urobilinogen Negative E.U./dl (0.2-1.0) 12/31/16 15:00 Ur Leukocyte Esterase Negative (NEGATIVE) 12/31/16 15:00 Urine RBC 2 /hpf (0-3) 12/31/16 15:00 Urine WBC 2 /hpf (3-5) 12/31/16 15:00 Ur Epithelial Cells Rare /hpf (FEW) 12/31/16 15:00 Hyaline Casts 7 /lpf 12/31/16 15:00 Urine Mucus Many 12/31/16 15:00 Carbamazepine 3.9 ug/ml (4.0-12.0) L 01/01/17 06:00 RPR Titer Nonreactive (NONREACTIVE) 01/01/17 06:00 HIV 1&2 Antibody Screen Negative 12/31/16 12:00 HIV P24 Antigen Negative 12/31/16 12:00 Assessment: 01/03/17 09:39 DECREASED W/S. Plan: CONTINUE DETOX
[2017-01-03] MEDS: PRENATAL VITAMINS W/ FOLIC ACID TABLET (FP) PO SCH (10:06)
[2017-01-03] MEDS: SERTRALINE HCL 50 MG TABLET (FP) PO SCH (10:06)
[2017-01-03] MEDS: LIDOCAINE 5% TOPICAL PATCH TP SCH (10:06)
[2017-01-03] MEDS: NICOTINE 21 MG/24 HOURS TOPICAL PATCH TD SCH (10:06)
[2017-01-03] MEDS: carBAMazepine 200 MG TABLET PO SCH (10:06)
[2017-01-03] MEDS: CLOTRIMAZOLE 1%TOPICAL SOLUTION 30 ML BOTTLE TP SCH (10:07)
[2017-01-03 10:23] VITALS: BP 121/74; PULSE 93; TEMP 98.2
[2017-01-03] MEDS ORDERED: chlordiazePOXIDE HCL 10 MG CAPSULE PO SCH ×2 (11:00→17:00)
--- NOTE | 2017-01-04 09:39 | DS ---
[facility] Detox Discharge Summary Admission Date: 12/31/16 Discharge Date: 01/03/17 - History Present History: Alcohol Dependence Additional Comments: DETOXED WELL. ALERT O X 3. NAD. [facility]FERRED TO [facility] FOR [facility]CARE. REMINDED TO FOLLOW UP WITH DENTIST FOR DENTAL WORKUP. Pertinent Past History: ASTHMA SEIZURE DISORDER HX - Physical Exam Results Vital Signs: Vital Signs Temperature 98.2 F 01/03/17 10:22 Pulse Rate 93 H 01/03/17 10:22 Respiratory Rate 20 01/03/17 10:22 Blood Pressure 121/74 01/03/17 10:22 O2 Sat by Pulse Oximetry (%) Pertinent Admission Physical Exam Findings: WITHDRAWAL SX Laboratory Last Values WBC 12.4 K/mm3 (4.0-10.0) H 01/01/17 06:00 RBC 4.40 M/mm3 (4.00-5.60) 01/01/17 06:00 Hgb 12.8 GM/dL (11.7-16.9) 01/01/17 06:00 Hct 39.9 % (35.4-49) 01/01/17 06:00 MCV 90.7 fl (80-96) 01/01/17 06:00 MCHC 32.1 g/dl (32.0-35.9) 01/01/17 06:00 RDW 15.2 % (11.9-15.9) 01/01/17 06:00 Plt Count 292 K/MM3 (134-434) 01/01/17 06:00 MPV 8.3 fl (7.5-11.1) 01/01/17 06:00 Sodium 140 mmol/L (136-145) 01/01/17 06:00 Potassium 4.1 mmol/L (3.5-5.1) 01/01/17 06:00 Chloride 104 mmol/L (98-107) 01/01/17 06:00 Carbon Dioxide 28 mmol/L (21-32) 01/01/17 06:00 Anion Gap 8 (8-16) 01/01/17 06:00 BUN 9 mg/dL (7-18) 01/01/17 06:00 Creatinine 1.0 mg/dL (0.7-1.3) 01/01/17 06:00 Creat Clearance w eGFR > 60 (>60) 01/01/17 06:00 Random Glucose 95 mg/dL (74-106) 01/01/17 06:00 Calcium 8.9 mg/dL (8.5-10.1) 01/01/17 06:00 Total Bilirubin 0.3 mg/dL (0.2-1.0) D 01/01/17 06:00 AST 34 U/L (15-37) 01/01/17 06:00 ALT 41 U/L (12-78) D 01/01/17 06:00 Alkaline Phosphatase 95 U/L (45-117) 01/01/17 06:00 Total Protein 7.5 g/dl (6.4-8.2) 01/01/17 06:00 Albumin 3.7 g/dl (3.4-5.0) 01/01/17 06:00 Urine Color Yellow 12/31/16 15:00 Urine Appearance Clear 12/31/16 15:00 Urine pH 5.0 (5.0-8.0) 12/31/16 15:00 Ur Specific [place] >= 1.030 (1.005-1.025) H 12/31/16 15:00 Urine Protein 1+ (NEGATIVE) H 12/31/16 15:00 Urine Glucose (UA) Negative (NEGATIVE) 12/31/16 15:00 Urine Ketones Trace (NEGATIVE) H 12/31/16 15:00 Urine Blood Negative (NEGATIVE) 12/31/16 15:00 Urine Nitrite Negative (NEGATIVE) 12/31/16 15:00 Urine Bilirubin Negative (NEGATIVE) 12/31/16 15:00 Urine Urobilinogen Negative E.U./dl (0.2-1.0) 12/31/16 15:00 Ur Leukocyte Esterase Negative (NEGATIVE) 12/31/16 15:00 Urine RBC 2 /hpf (0-3) 12/31/16 15:00 Urine WBC 2 /hpf (3-5) 12/31/16 15:00 Ur Epithelial Cells Rare /hpf (FEW) 12/31/16 15:00 Hyaline Casts 7 /lpf 12/31/16 15:00 Urine Mucus Many 12/31/16 15:00 Carbamazepine 3.9 ug/ml (4.0-12.0) L 01/01/17 06:00 RPR Titer Nonreactive (NONREACTIVE) 01/01/17 06:00 HIV 1&2 Antibody Screen Negative 12/31/16 12:00 HIV P24 Antigen Negative 12/31/16 12:00 - Treatment Hospital Course: Detox Protocol Followed, Detoxed Safely, Responded well, Discharged Condition Good, Rehab Referral Accepted Patient has Accepted a Rehab Referral to: [place], [place] - Medication Discharge Medications: Ambulatory Orders Albuterol Sulfate Inhaler - [Ventolin HFA Inhaler -] 2 inh IH Q4H PRN #0 Carbamazepine [Tegretol -] 200 mg PO BID #60 tablet 11/06/16 Gabapentin 800 mg PO TID #90 tablet 11/06/16 Sertraline HCl [Zoloft -] 50 mg PO DAILY #30 tablet 12/31/16 - Diagnosis (1) Alcohol dependence with uncomplicated withdrawal Status: Acute (2) Asthma Status: Chronic Qualifiers: Asthma severity: mild intermittent Asthma complication type: with status asthmaticus Qualified Code(s): J45.22 - Mild intermittent asthma with status asthmaticus (3) Chronic low back pain with left-sided sciatica Status: Chronic Qualifiers: Back pain laterality: left Qualified Code(s): M54.42 - Lumbago with sciatica, left side; G89.29 - Other chronic pain (4) Obesity (BMI 30-39.9) Status: Chronic (5) Drug-induced mood disorder Status: Acute (6) Bipolar disorder Status: Chronic Qualifiers: Current bipolar episode type: depressed (7) Nicotine dependence Status: Chronic (8) Tooth decay Status: Chronic (9) Cocaine dependence, uncomplicated Status: Acute - AMA Did Patient Leave Against Medical Advice: No
== END 2017-01-03 10:25 | disposition home or self-care (01) | DRG 897 ==
LOC: YASAS 10:10 → Y3N 11:56
PROVIDERS: ADMIT Internal Medicine; ATTEND Internal Medicine
PROC: HZ2ZZZZ Detoxification Services for Substance Abuse Treatment (ICD-10-PCS; principal; 2016-12-31)
DX: F10.230 Alcohol dependence with withdrawal, uncomplicated (principal); F14.20 Cocaine dependence, uncomplicated; F12.20 Cannabis dependence, uncomplicated; F17.210 Nicotine dependence, cigarettes, uncomplicated; F31.9 Bipolar disorder, unspecified; F19.24 Other psychoactive substance dependence with psychoactive substance-induced mood disorder; J45.909 Unspecified asthma, uncomplicated; K02.9 Dental caries, unspecified; E66.9 Obesity, unspecified; M54.32 Sciatica, left side; Z68.38 Body mass index [BMI] 38.0-38.9, adult; Z91.14 Patient's other noncompliance with medication regimen; Z86.69 Personal history of other diseases of the nervous system and sense organs; Z91.5 Personal history of self-harm
CPT/HCPCS: 36415; 80053; 80156; 81003; 81015; 85027; 86593; 87389; 93005; 93010

== ENCOUNTER 2017-01-23 14:39 | Inpatient (IN) | payer MEDICARE ==
[2017-01-23 15:03] VITALS: BMI 37.6
--- NOTE | 2017-01-23 15:22 | HP ---
Admission [facility] Chief Complaint: i am here for rehab from alcohol and cocaine Allergies/Adverse Reactions: Allergies Allergy/AdvReac Type Severity Reaction Status Date / Time No Known Drug Allergies Allergy Verified 01/23/17 15:16 Pork/Porcine Containing AdvReac Severe Nausea Verified 01/23/17 15:16 Products trazodone AdvReac Severe priapism Verified 01/23/17 15:16 History of Present Illness: this 31 years old male with cocaine dependence,seeking help for rehab,last treatment in [facility] 12/31/16 to 01/03/17 nicotine dependence low back pain asthma longest period of sobriety 2 and half years bipolar and schizophrenia Exam Limitations: No Limitations - Ebola screening Have you traveled outside of the country in the last 21 days: No Have you had contact with anyone from an Ebola affected area: No Have you been sick,other than usual withdrawal symptoms: No Do you have a fever: No - Review of Systems Constitutional: No Symptoms Reported EENT: reports: No Symptoms Reported Respiratory: reports: No Symptoms reported, Other (asthma) Cardiac: reports: No Symptoms Reported GI: reports: No Symptoms Reported : reports: No Symptoms Reported Musculoskeletal: reports: No Symptoms Reported Integumentary: reports: No Symptoms Reported, Other (tinea pedis) Neuro: reports: No Symptoms reported Endocrine: reports: No Symptoms Reported Hematology: reports: No Symptoms Reported Psychiatric: reports: other (bipolar disorder,schizophrenia) Patient History - Patient Medical History Hx Anemia: No Hx Asthma: Yes (Pt is on MDi.) Hx Chronic Obstructive Pulmonary Disease (COPD): No Hx Cancer: No Hx Cardiac Disorders: No Hx Congestive Heart Failure: No Hx Hypertension: No Hx Hypercholesterolemia: No Hx Pacemaker: No HX Cerebrovascular Accident: No Hx Seizures: Yes (pt states etoh related in the past. No Meds ) Hx Dementia: No Hx Diabetes: No Hx Gastrointestinal Disorders: No Hx Liver Disease: No Hx Genitourinary Disorders: No Hx Sexually Transmitted Disorders: No Hx Renal Disease (ESRD): No Hx Thyroid Disease: No Hx Human Immunodeficiency Virus (HIV): No (last 12/31/16 negative) Hx Hepatitis C: No Hx Depression: Yes Hx Suicide Attempt: Yes (hx of cutting himself last cutting 08/31) Hx Bipolar Disorder: Yes (WAS ON ABILIfY MANY YEARS AGO) Hx Schizophrenia: No Other Medical History: no suicidal,no homicidal - Patient Surgical History Past Surgical History: Yes Hx Neurologic Surgery: No Hx Cataract Extraction: No Hx Cardiac Surgery: No Hx Lung Surgery: No Hx Breast Surgery: No Hx Breast Biopsy: No Hx Abdominal Surgery: No Hx Appendectomy: No Hx Cholecystectomy: No Hx Genitourinary Surgery: No Hx Section: No Hx Orthopedic Surgery: Yes (LEFT KNEE,TORN ACL AND MENISCUS since age 8 years) Anesthesia Reaction: No - PPD History Previous Implant?: Yes Documented Results: Negative w/proof Date: 05/29/16 Results: 0 MM PPD to be Administered?: No - Smoking Cessation Smoking history: Current every day smoker Have you smoked in the past 12 months: Yes Aproximately how many cigarettes per day: 40 Cigars Per Day: 15 Hx Chewing Tobacco Use: No Initiated information on smoking cessation: Yes 'Breaking Loose' booklet given: 01/23/17 - Substance & Tx. History Hx Alcohol Use: Yes Hx Substance Use: Yes Substance Use Type: Cocaine Hx Substance Use Treatment: Yes ([facility] 12/31/16 to 01/03/17) - Substances Abused Crack Route: Smoking Frequency: Daily Amount used: $800 Age of first use: 15 Date of Last Use: 01/22/17 Family Disease History - Family Disease History Family Disease History: Other: Father ( unkown), Mother (sciatica, ) Admission Physical Exam [facility] - Vital Signs Vital Signs: Vital Signs - 24 hr 01/23/17 14:55 Temperature 98 F Pulse Rate 72 Respiratory 20 Rate Blood Pressure 124/76 - Physical General Appearance: Yes: Within Normal Limits HEENTM: Yes: Within Normal Limits, Hearing grossly Normal, Pharynx Normal Respiratory: Yes: Within Normal Limits, Chest Non-Tender, Lungs Clear, Normal Breath Sounds Neck: Yes: Within Normal Limits Breast: Yes: Within Normal Limits Cardiology: Yes: Within Normal Limits, Regular Rhythm, Regular Rate, S1, S2 Abdominal: Yes: Within Normal Limits, Normal Bowel Sounds, Non Tender, Flat, Soft Genitourinary: Yes: Within Normal Limits Back: Yes: Within Normal Limits, Normal Inspection Musculoskeletal: Yes: Within Normal Limits Extremities: Yes: Within Normal Limits Neurological: Yes: pump runner II-XII NML intact, Fully Oriented, Alert, Motor Strength 5/5 Integumentary: Yes: Dry, Other (tinea pedis) Lymphatic: Yes: Within Normal Limits - Diagnostic (1) Chronic low back pain with left-sided sciatica Current Visit: No Status: Chronic Qualifiers: Back pain laterality: left Qualified Code(s): M54.42 - Lumbago with sciatica, left side; G89.29 - Other chronic pain (2) Nicotine dependence Current Visit: No Status: Chronic (3) Obesity (BMI 30-39.9) Current Visit: No Status: Chronic (4) Bipolar 1 disorder Current Visit: No Status: Suspected (5) Cocaine dependence Current Visit: Yes Status: Acute Cleared for Admission S - Detox or Rehab Claeared for Rehab Admission: Yes S Breath Alcohol Content Breath Alcohol Content: 0 Urine Drug Screen - Results Drug Screen Negative: No Urine Drug Screen Results: RICCARDO-Cocaine
[2017-01-23] MEDS ORDERED: P-EPHED 60MG/TRIPROLIDI 2.5MG TABLET PO PRN (15:33)
[2017-01-23] MEDS ORDERED: diphenhydrAMINE HCL 50 MG CAPSULE PO PRN (15:33)
[2017-01-23] MEDS ORDERED: guaiFENesin/D-METHORPHAN HB 10 ML UNIT-DOSE CUPS PO PRN (15:33)
[2017-01-23] MEDS ORDERED: IBUPROFEN 400 MG TABLET (FP) PO PRN (15:33)
[2017-01-23] MEDS ORDERED: LOPERAMIDE HCL 2 MG CAPSULE PO PRN (15:33)
[2017-01-23] MEDS ORDERED: MAGNESIUM HYDROX 2400MG/30ML ORAL SUSPENSION 30 ML CUP PO PRN (15:33)
[2017-01-23] MEDS ORDERED: ACETAMINOPHEN 325 MG TABLET (FP) PO PRN (15:33)
[2017-01-23] MEDS ORDERED: MAGNESIUM CITRATE 300 ML BOTTLE PO PRN (15:33)
[2017-01-23] MEDS ORDERED: MAG HYDROX/AL HYDROX/SIMETH 30 ML UNIT-DOSE CUP PO PRN (15:33)
[2017-01-23] MEDS ORDERED: hydrOXYzine PAMOATE 50 MG CAPSULE (FP) PO PRN (15:33)
[2017-01-23] MEDS ORDERED: ALBUTEROL SO4 6.7 GM HFA INHALER IH PRN (15:35)
[2017-01-23] MEDS: carBAMazepine 200 MG TABLET PO SCH (21:26)
[2017-01-23] MEDS: THIAMINE HCL 100 MG TABLET (FP) PO SCH (21:26)
[2017-01-23] MEDS: GABAPENTIN 400 MG CAPSULE (FP) PO SCH (21:27)
[2017-01-23] MEDS: CLOTRIMAZOLE 1% 10 ML SOLUTION TP SCH (21:30)
[2017-01-23] MEDS ORDERED: TOLNAFTATE 1% CREAM 15 GM TUBE TP SCH (22:00)
[2017-01-23 22:29] LABS: URINE APPEARANCE SLCLOUDY; URINE BILIRUBIN NEGATIVE (NEGATIVE); URINE BLOOD NEGATIVE (NEGATIVE); URINE COLOR DKYELLOW; URINE GLUCOSE (UA) NEGATIVE (NEGATIVE); URINE KETONE NEGATIVE (NEGATIVE); URINE LEUK ESTERASE NEGATIVE (NEGATIVE); URINE NITRITE NEGATIVE (NEGATIVE); URINE PROTEIN 1+ (NEGATIVE); URINE UROBILINOGEN NEGATIVE mg/dL (0.2-1.0)
[2017-01-23 22:38] LABS: URINE HYALINE CAST 11 /lpf; URINE MUCUS MANY; URINE RBC 6 /hpf (0-3); URINE WBC 3 /hpf (3-5)
[2017-01-23] MEDS: NICOTINE 21 MG/24 HOURS TOPICAL PATCH TD SCH (22:53)
[2017-01-24] MEDS: GABAPENTIN 400 MG CAPSULE (FP) PO SCH ×3 (06:22→21:24)
[2017-01-24] MEDS: MENTHOL/PHENOL 1 EACH UD MM PRN ×2 (06:23→21:27)
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
[2017-01-24 09:54] LABS: MCHC 32.5 g/dl (32.0-35.9); MEAN CELL VOLUME 89.4 fl (80-96); MEAN PLT VOLUME 7.9 fl (7.5-11.1); PLATELET COUNT 253 K/MM3 (134-434); RDW 16.2 % (11.9-15.9); WHITE BLOOD COUNT 9.5 K/mm3 (4.0-10.0)
[2017-01-24] MEDS: NICOTINE 21 MG/24 HOURS TOPICAL PATCH TD SCH (09:59)
[2017-01-24] MEDS: PRENATAL VITAMINS W/ FOLIC ACID TABLET (FP) PO SCH (09:59)
[2017-01-24] MEDS: carBAMazepine 200 MG TABLET PO SCH ×2 (09:59→21:24)
[2017-01-24] MEDS: CLOTRIMAZOLE 1% 10 ML SOLUTION TP SCH ×2 (10:00→21:28)
[2017-01-24 10:15] LABS: ALBUMIN 3.2 g/dl (3.4-5.0); ALK PHOS 81 U/L (45-117); ANION GAP 7 (8-16); BILIRUBIN,TOTAL 0.2 mg/dL (0.2-1.0); CALCIUM 8.9 mg/dL (8.5-10.1); CO2 28 mmol/L (21-32); CREATININE 0.9 mg/dL (0.7-1.3); GLUCOSE,RANDOM 100 mg/dL (74-106); SGOT/AST 26 U/L (15-37); SGPT/ALT 24 U/L (12-78); TOT PROT 6.7 g/dl (6.4-8.2)
[2017-01-24 11:40] LABS: HIV 1 & 2 AB NEGATIVE; HIV 1 AGp24 NEGATIVE
--- NOTE | 2017-01-24 15:47 | EKG ---
Test Reason : Blood Pressure : / mmHG Vent. Rate : 077 BPM Atrial Rate : 077 BPM P-R Int : 186 ms QRS Dur : 098 ms QT Int : 396 ms P-R-T Axes : 026 020 036 degrees QTc Int : 448 ms NORMAL SINUS RHYTHM NORMAL ECG WHEN COMPARED WITH ECG OF 31-DEC-2016 13:55, NO SIGNIFICANT CHANGE WAS FOUND Confirmed by YESY CALVERT MD ([id number]) on 01/24/2017 3:46:59 PM Referred By: Confirmed By:YESY CALVERT MD
[2017-01-24] MEDS: THIAMINE HCL 100 MG TABLET (FP) PO SCH (21:24)
[2017-01-24] MEDS ORDERED: risperiDONE 2 MG TABLET PO SCH (22:00)
[2017-01-24] MEDS ORDERED: PRAZOSIN HCL 1 MG CAPSULE PO SCH (22:00)
[2017-01-25] MEDS: GABAPENTIN 400 MG CAPSULE (FP) PO SCH ×2 (06:20→14:12)
[2017-01-25 06:30] VITALS: BP 126/71; PULSE 84; TEMP 98.8
[2017-01-25] MEDS ORDERED: SERTRALINE HCL 50 MG TABLET (FP) PO SCH (10:00)
[2017-01-25] MEDS: PRENATAL VITAMINS W/ FOLIC ACID TABLET (FP) PO SCH (10:19)
[2017-01-25] MEDS: carBAMazepine 200 MG TABLET PO SCH (10:19)
[2017-01-25] MEDS: CLOTRIMAZOLE 1% 10 ML SOLUTION TP SCH (10:22)
[2017-01-25] MEDS: NICOTINE 21 MG/24 HOURS TOPICAL PATCH TD SCH (10:22)
[2017-01-25] MEDS ORDERED: ALBUTEROL SO4 6.7 GM HFA INHALER IH PRN (18:59)
--- NOTE | 2017-01-25 22:10 | PN ---
[facility] Progress Note Note: received nurse informed that the patient would like to leave the facility. upon arrival to the unit, patient left with all his belonging. chart reviewed, history of asthma, ventolin e prescribed sent to pharmacy.
== END 2017-01-25 18:29 | disposition left against medical advice (07) | DRG 894 ==
LOC: YASAS 14:39 → Y3W 15:16
PROVIDERS: ADMIT Psychiatry & Neurology Psychiatry; ATTEND Psychiatry & Neurology Psychiatry
PROC: HZ42ZZZ Group Counseling for Substance Abuse Treatment, Cognitive-Behavioral (ICD-10-PCS; principal; 2017-01-25)
DX: F14.20 Cocaine dependence, uncomplicated (principal); J45.22 Mild intermittent asthma with status asthmaticus; F17.210 Nicotine dependence, cigarettes, uncomplicated; F31.9 Bipolar disorder, unspecified; F43.10 Post-traumatic stress disorder, unspecified; M54.42 Lumbago with sciatica, left side; G89.29 Other chronic pain; E66.09 Other obesity due to excess calories; Z68.37 Body mass index [BMI] 37.0-37.9, adult
CPT/HCPCS: 36415; 80053; 81003; 81015; 85027; 86593; 87389; 93005; 93010

== ENCOUNTER 2017-02-27 10:57 | Inpatient (IN) | payer MEDICARE, OTHER ==
[2017-02-27 14:06] VITALS: BMI 38.1
--- NOTE | 2017-02-27 16:30 | HP ---
CIWA Score - CIWA Score Nausea/Vomitin-Mild Nausea/No Vomiting Muscle Tremors: 4-Moderate,w/Arms Extend Anxiety: 4-Mod. Anxious/Guarded Agitation: 4-Moderately Restless Paroxysmal Sweats: 1-Minimal Palms Moist Orientation: 0-Oriented Tacttile Disturbances: 0-None Auditory Disturbances: 0-None Visual Disturbances: 0-None Headache: 0-None Present CIWA-Ar Total Score: 14 Admission ROS S - HPI Chief Complaint: WITHDRAWAL SX Allergies/Adverse Reactions: Allergies Allergy/AdvReac Type Severity Reaction Status Date / Time No Known Drug Allergies Allergy Verified 02/27/17 14:19 Pork/Porcine Containing AdvReac Severe Nausea Verified 02/27/17 14:19 Products trazodone AdvReac Severe priapism Verified 02/27/17 14:19 History of Present Illness: 32 YEARS OLD MALE WITH LONG HISTORY OF ALCOHOL NICOTINE DEPENDENCE, CHRONIC BACK PAIN AND BIPOLAR II IS ADMITTED TO DETOX Exam Limitations: No Limitations - Ebola screening Have you traveled outside of the country in the last 21 days: No Have you had contact with anyone from an Ebola affected area: No Have you been sick,other than usual withdrawal symptoms: No Do you have a fever: No - Review of Systems Constitutional: Changes in sleep, Weight Stable EENT: reports: Blurred Vision (LEFT EYE = 07/2016 TRAUMA) Respiratory: reports: No Symptoms reported Cardiac: reports: No Symptoms Reported GI: reports: Nausea, Poor Fluid Intake, Abdominal cramping : reports: No Symptoms Reported Musculoskeletal: reports: Back Pain Integumentary: reports: Other (FUNGAL TOES) Neuro: reports: Seizure (LAST EPISODE 14 YEARS OLD = HEAD TRAUMA), Tremors Endocrine: reports: No Symptoms Reported Hematology: reports: No Symptoms Reported Psychiatric: reports: Judgement Intact, Orientated x3, Anxious, Depressed Other Systems: Reviewed and Negative Patient History - Patient Medical History Hx Anemia: No Hx Asthma: Yes Hx Chronic Obstructive Pulmonary Disease (COPD): No Hx Cancer: No Hx Cardiac Disorders: No Hx Congestive Heart Failure: No Hx Hypertension: No Hx Hypercholesterolemia: No Hx Pacemaker: No HX Cerebrovascular Accident: No Hx Seizures: Yes (BY HISTORY) Hx Dementia: No Hx Diabetes: No Hx Gastrointestinal Disorders: No Hx Liver Disease: No Hx Genitourinary Disorders: No Hx Sexually Transmitted Disorders: No Hx Renal Disease (ESRD): No Hx Thyroid Disease: No Hx Human Immunodeficiency Virus (HIV): No (last 12/31/16 negative) Hx Hepatitis C: No Hx Depression: No Hx Suicide Attempt: Yes (07/2016 CUT LEFT ARM ) Hx Bipolar Disorder: Yes (WAS ON ABILIfY MANY YEARS AGO) Hx Schizophrenia: No - Patient Surgical History Past Surgical History: Yes Hx Neurologic Surgery: No Hx Cataract Extraction: No Hx Cardiac Surgery: No Hx Lung Surgery: No Hx Breast Surgery: No Hx Breast Biopsy: No Hx Abdominal Surgery: No Hx Appendectomy: No Hx Cholecystectomy: No Hx Genitourinary Surgery: No Hx Orthopedic Surgery: Yes (LEFT KNEE,TORN ACL AND MENISCUS since age 8 years) Anesthesia Reaction: No - PPD History Previous Implant?: Yes Documented Results: Negative w/proof Implanted On Prior R Admission?: Yes Date: 05/29/16 Results: 0 MM PPD to be Administered?: No - Smoking Cessation Smoking history: Current every day smoker Have you smoked in the past 12 months: Yes Aproximately how many cigarettes per day: 20 Hx Chewing Tobacco Use: No Initiated information on smoking cessation: Yes 'Breaking Loose' booklet given: 02/27/17 - Substance & Tx. History Hx Alcohol Use: Yes Hx Substance Use: No Substance Use Type: Alcohol, Cocaine Hx Substance Use Treatment: Yes (01/23-01/25/17 [facility] - Substances Abused Alcohol Route: Oral Frequency: Daily Amount used: Liquor(2 pints) Age of first use: 15 Date of Last Use: 02/27/17 Crack Route: Smoking Frequency: Daily Amount used: $200-300 Age of first use: 15 Date of Last Use: 02/26/17 Family Disease History - Family Disease History Family Disease History: Other: Father ( unkown), Mother (sciatica, ), Brother (NO CONTACT) Admission Physical Exam [facility] - Vital Signs Vital Signs: Vital Signs - 24 hr 02/27/17 14:04 Temperature 97.8 F Pulse Rate 94 H Respiratory 20 Rate Blood Pressure 140/73 - Physical General Appearance: Yes: Appropriately Dressed, Mild Distress, Alcohol on Breath , Obese, Tremorous, Irritable, Sweating, Anxious HEENTM: Yes: Hearing grossly Normal, Normal ENT Inspection, Normocephalic, Normal Voice Respiratory: Yes: Chest Non-Tender, Lungs Clear, Normal Breath Sounds, No Respiratory Distress, No Accessory Muscle Use Neck: Yes: Supple, Trachea in good position Breast: Yes: Breasts Symetrical Cardiology: Yes: Regular Rhythm, S1, S2, Tachycardia Abdominal: Yes: Non Tender, Soft Genitourinary: Yes: Within Normal Limits Back: Yes: Normal Inspection Musculoskeletal: Yes: full range of Motion, Gait Steady, Back pain Extremities: Yes: Normal Range of Motion, Non-Tender, Tremors Neurological: Yes: Fully Oriented, Alert, Motor Strength 5/5, Normal Response, Depressed Affect Integumentary: Yes: Warm Lymphatic: Yes: Within Normal Limits - Diagnostic (1) Alcohol dependence with uncomplicated withdrawal Current Visit: Yes Status: Acute (2) Cocaine dependence, uncomplicated Current Visit: Yes Status: Chronic (3) Asthma Current Visit: Yes Status: Chronic Qualifiers: Asthma severity: mild intermittent Asthma complication type: with status asthmaticus Qualified Code(s): J45.22 - Mild intermittent asthma with status asthmaticus (4) Chronic low back pain with left-sided sciatica Current Visit: Yes Status: Chronic Qualifiers: Back pain laterality: left Qualified Code(s): M54.42 - Lumbago with sciatica, left side; G89.29 - Other chronic pain Comment: TEGRETOL LEVEL PENDING (5) Nicotine dependence Current Visit: No Status: Chronic (6) Obesity (BMI 30-39.9) Current Visit: Yes Status: Acute (7) Bipolar II disorder Current Visit: Yes Status: Suspected Cleared for Admission [facility] - Detox or Rehab [facility] Level of Care: Medically Managed Detox Regimen/Protocol: Librium [facility] Breath Alcohol Content Breath Alcohol Content: 0.008 Urine Drug Screen - Results Drug Screen Negative: No Urine Drug Screen Results: RICCARDO-Cocaine, BZO-Benzodiazepines
[2017-02-27] MEDS ORDERED: guaiFENesin/D-METHORPHAN HB 10 ML UNIT-DOSE CUPS PO PRN (16:37)
[2017-02-27] MEDS ORDERED: ACETAMINOPHEN 325 MG TABLET (FP) PO PRN (16:37)
[2017-02-27] MEDS ORDERED: hydrOXYzine PAMOATE 50 MG CAPSULE (FP) PO PRN (16:37)
[2017-02-27] MEDS ORDERED: IBUPROFEN 400 MG TABLET (FP) PO PRN (16:37)
[2017-02-27] MEDS ORDERED: P-EPHED 60MG/TRIPROLIDI 2.5MG TABLET PO PRN (16:37)
[2017-02-27] MEDS ORDERED: MAGNESIUM CITRATE 300 ML BOTTLE PO PRN (16:37)
[2017-02-27] MEDS ORDERED: diphenhydrAMINE HCL 50 MG CAPSULE PO PRN (16:37)
[2017-02-27] MEDS ORDERED: MENTHOL/PHENOL 1 EACH UD MM PRN (16:37)
[2017-02-27] MEDS ORDERED: NICOTINE POLACRILEX 4 MG GUM BC PRN (16:37)
[2017-02-27] MEDS ORDERED: LOPERAMIDE HCL 2 MG CAPSULE PO PRN (16:37)
[2017-02-27] MEDS ORDERED: MAGNESIUM HYDROX 2400MG/30ML ORAL SUSPENSION 30 ML CUP PO PRN (16:37)
[2017-02-27] MEDS ORDERED: MAG HYDROX/AL HYDROX/SIMETH 30 ML UNIT-DOSE CUP PO PRN (16:37)
[2017-02-27] MEDS ORDERED: ALBUTEROL SO4 6.7 GM HFA INHALER IH PRN (16:39)
[2017-02-27] MEDS: chlordiazePOXIDE HCL 25 MG CAPSULE PO PRN (19:10)
[2017-02-27] MEDS ORDERED: THIAMINE HCL 100 MG TABLET (FP) PO SCH (22:00)
[2017-02-27] MEDS: CLOTRIMAZOLE 1% CREAM 15 GM TUBE TP SCH (22:12)
[2017-02-27] MEDS: carBAMazepine 200 MG TABLET PO SCH (22:13)
[2017-02-27] MEDS: chlordiazePOXIDE HCL 25 MG CAPSULE PO SCH (22:13)
[2017-02-27] MEDS: GABAPENTIN 400 MG CAPSULE (FP) PO SCH (22:13)
[2017-02-27 23:29] LABS: URINE APPEARANCE CLEAR; URINE BILIRUBIN NEGATIVE (NEGATIVE); URINE BLOOD NEGATIVE (NEGATIVE); URINE COLOR LT. YELLOW; URINE GLUCOSE (UA) NEGATIVE (NEGATIVE); URINE KETONE NEGATIVE (NEGATIVE); URINE LEUK ESTERASE NEGATIVE (NEGATIVE); URINE NITRITE NEGATIVE (NEGATIVE); URINE PROTEIN NEGATIVE (NEGATIVE); URINE UROBILINOGEN 0.2 mg/dL (0.2-1.0)
[2017-02-28] MEDS: GABAPENTIN 400 MG CAPSULE (FP) PO SCH ×2 (05:59→14:52)
[2017-02-28] MEDS: chlordiazePOXIDE HCL 25 MG CAPSULE PO SCH ×2 (05:59→10:11)
--- NOTE | 2017-02-28 09:13 | CONSULT ---
[facility] Psychiatric Consult - Data Date of interview: 02/28/17 Admission source: [facility] Identifying data: This is 32 years old male with psychiatric [id number] history intoxicated with: Alcohol, Cocaine, Cannabis and Nicotine Substance Abuse History: - Smoking Cessation. Smoking history: Current every day smoker. Have you smoked in the past 12 months: Yes. Aproximately how many cigarettes per day: 20. Hx Chewing Tobacco Use: No. Initiated information on smoking cessation: Yes. 'Breaking Loose' booklet given: 02/27/17. - Substance & Tx. History. Hx Alcohol Use: Yes. Hx Substance Use: No. Substance Use Type : Alcohol, Cocaine. Hx Substance Use Treatment: Yes (01/23-01/25/17 [facility] - Substances Abused. Alcohol. Route: Oral. Frequency: Daily. Amount used : Liquor(2 pints). Age of first use: 15. Date of Last Use: 02/27/17. Crack. Route: Smoking. Frequency: Daily. Amount used: $200-300. Age of first use: 15. Date of Last Use: 02/26/17 Medical History: Asthma, Obesity, LBP, Syncope, Sciatica, Psychiatric History: Patient reports history of Bipolar Disortder, PTSD, Scizoaffective disorder, reportsm most recent psycvhiatric admission on 2016 at [facility] , reports currently taking: Zyprexa 20mg po qhs. Gabapentin 800mg pop tid Physical/Sexual Abuse/Trauma History: Denies Additional Comment: Zyprexa 20mg po qhs. Gabapentin 800mg pop tid Mental Status Exam - Mental Status Exam Alert and Oriented to: Person Cognitive Function: Fair Patient Appearance: Unkempt Mood: Sad Affect: Mood Congruent Patient Behavior: Cooperative Speech Pattern: Delayed Voice Loudness: Normal Thought Process: Circumstantial Thought Disorder: Being Controlled Hallucinations: Denies Suicidal Ideation: Denies Homicidal Ideation: Denies Insight/Judgement: Fair Sleep: Difficulty falling asleep Appetite: Weight gain Muscle strength/Tone: Normal Gait/Station: Normal Additional Comments: Zyprexa 20mg po qhs. Gabapentin 800mg pop tid Psychiatric Findings - Problem List ([place] 1, 2,3) (1) Alcohol dependence with uncomplicated withdrawal Current Visit: Yes Status: Acute (2) Obesity (BMI 30-39.9) Current Visit: Yes Status: Acute (3) Cocaine dependence, uncomplicated Current Visit: Yes Status: Chronic (4) Bipolar II disorder Current Visit: Yes Status: Suspected (5) Cocaine dependence Current Visit: No Status: Acute (6) Drug-induced mood disorder Current Visit: No Status: Acute (7) Cannabis dependence Current Visit: No Status: Chronic (8) Nicotine dependence Current Visit: No Status: Chronic (9) Bipolar 1 disorder Current Visit: No Status: Suspected (10) Bipolar disorder Current Visit: No Status: Chronic Qualifiers: Current bipolar episode type: depressed (11) Non compliance w medication regimen Current Visit: No Status: Chronic - Initial Treatment Plan Initial Treatment Plan: Zyprexa 20mg po qhs. Gabapentin 800mg pop tid
[2017-02-28 09:52] LABS: MCH 29.2 pg (25.7-33.7); MCHC 33.3 g/dl (32.0-35.9); MEAN CELL VOLUME 87.7 fl (80-96); MEAN PLT VOLUME 8.1 fl (7.5-11.1); PLATELET COUNT 363 K/MM3 (134-434); RDW 16.7 % (11.9-15.9); WHITE BLOOD COUNT 9.1 K/mm3 (4.0-10.0)
[2017-02-28] MEDS ORDERED: NICOTINE 21 MG/24 HOURS TOPICAL PATCH TD SCH (10:00)
[2017-02-28] MEDS ORDERED: PRENATAL VITAMINS W/ FOLIC ACID TABLET (FP) PO SCH (10:00)
[2017-02-28] MEDS: carBAMazepine 200 MG TABLET PO SCH (10:12)
[2017-02-28] MEDS: CLOTRIMAZOLE 1% CREAM 15 GM TUBE TP SCH (10:12)
[2017-02-28 10:13] LABS: HIV 1 & 2 AB NEGATIVE; HIV 1 AGp24 NEGATIVE
[2017-02-28 10:31] LABS: ALBUMIN 3.6 g/dl (3.4-5.0); ALK PHOS 88 U/L (45-117); BILIRUBIN,TOTAL 0.3 mg/dL (0.2-1.0); CALCIUM 9.3 mg/dL (8.5-10.1); CO2 31 mmol/L (21-32); CREATININE 0.8 mg/dL (0.7-1.3); GLUCOSE,RANDOM 95 mg/dL (74-106); SGOT/AST 40 U/L (15-37); SGPT/ALT 53 U/L (12-78); TOT PROT 7.3 g/dl (6.4-8.2)
--- NOTE | 2017-02-28 10:44 | PN ---
S CIWA - CIWA Score Nausea/Vomitin Muscle Tremors: 3 Anxiety: 3 Agitation: 3 Paroxysmal Sweats: 1-Minimal Palms Moist Orientation: 0-Oriented Tacttile Disturbances: 1-Very Mild Itch/Numbness Auditory Disturbances: 1-Very Mild Visual Disturbances: 1-Very Mild Sensitivity Headache: 2-Mild CIWA-Ar Total Score: 18 BHS Progress Note (SOAP) Subjective: ALERT,IRRITABLE,ANXIOUS,INTERRUPTED SLEEP,TREMOR Objective: 02/28/17 10:27 Vital Signs Temperature 98.2 F 02/28/17 10:11 Pulse Rate 85 02/28/17 10:11 Respiratory Rate 20 02/28/17 10:11 Blood Pressure 105/73 02/28/17 10:11 O2 Sat by Pulse Oximetry (%) EKG NSR,NORMAL ECG Laboratory Last Values WBC 9.1 K/mm3 (4.0-10.0) 02/28/17 06:00 RBC 4.45 M/mm3 (4.00-5.60) 02/28/17 06:00 Hgb 13.0 GM/dL (11.7-16.9) 02/28/17 06:00 Hct 39.1 % (35.4-49) 02/28/17 06:00 MCV 87.7 fl (80-96) 02/28/17 06:00 MCH 29.2 pg (25.7-33.7) 02/28/17 06:00 MCHC 33.3 g/dl (32.0-35.9) 02/28/17 06:00 RDW 16.7 % (11.9-15.9) H 02/28/17 06:00 Plt Count 363 K/MM3 (134-434) D 02/28/17 06:00 MPV 8.1 fl (7.5-11.1) 02/28/17 06:00 Urine Color Lt. yellow 02/27/17 20:56 Urine Appearance Clear 02/27/17 20:56 Urine pH 6.0 (5.0-8.0) 02/27/17 20:56 Urine Protein Negative (NEGATIVE) 02/27/17 20:56 Urine Glucose (UA) Negative (NEGATIVE) 02/27/17 20:56 Urine Ketones Negative (NEGATIVE) 02/27/17 20:56 Urine Blood Negative (NEGATIVE) 02/27/17 20:56 Urine Nitrite Negative (NEGATIVE) 02/27/17 20:56 Urine Bilirubin Negative (NEGATIVE) 02/27/17 20:56 Urine Urobilinogen 0.2 mg/dL (0.2-1.0) 02/27/17 20:56 Ur Leukocyte Esterase Negative (NEGATIVE) 02/27/17 20:56 HIV 1&2 Antibody Screen Negative 02/27/17 13:00 HIV P24 Antigen Negative 02/27/17 13:00 LABS PENDING Assessment: 02/28/17 10:29 WITHDRAWAL SYMPTOM Plan: CONTINUE DETOX
[2017-02-28] MEDS: chlordiazePOXIDE HCL 25 MG CAPSULE PO PRN (14:57)
--- NOTE | 2017-02-28 15:02 | EKG ---
Test Reason : Blood Pressure : / mmHG Vent. Rate : 088 BPM Atrial Rate : 088 BPM P-R Int : 190 ms QRS Dur : 102 ms QT Int : 382 ms P-R-T Axes : 037 020 040 degrees QTc Int : 462 ms NORMAL SINUS RHYTHM NORMAL ECG WHEN COMPARED WITH ECG OF 23-JAN-2017 20:10, NO SIGNIFICANT CHANGE WAS FOUND Confirmed by YESY CALVERT MD ([id number]) on 02/28/2017 3:02:26 PM Referred By: Confirmed By:YESY CALVERT MD
[2017-02-28 17:37] VITALS: BP 120/65; PULSE 64; TEMP 98.1
--- NOTE | 2017-02-28 20:15 | DS ---
[facility] Detox Discharge Summary Admission Date: 02/27/17 Discharge Date: 02/28/17 - History Present History: Alcohol Dependence, Cannabis Dependence, Cocaine Dependence Additional Comments: received nurse reports that the patient is verbally aggressive toward staff, plan to relocate from 6n to 3n, during the transfer process, patient states that his is waiting for him down stair, patient insists to leave the unit, refuses to wait face to face with the provider, aftercare possible [facility] prescription sent Pertinent Past History: asthma nicotine dependence - Physical Exam Results Vital Signs: Vital Signs Temperature 98.1 F 02/28/17 17:36 Pulse Rate 64 02/28/17 17:36 Respiratory Rate 20 02/28/17 17:36 Blood Pressure 120/65 02/28/17 17:36 O2 Sat by Pulse Oximetry (%) Pertinent Admission Physical Exam Findings: withdrawal sx Laboratory Last Values WBC 9.1 K/mm3 (4.0-10.0) 02/28/17 06:00 RBC 4.45 M/mm3 (4.00-5.60) 02/28/17 06:00 Hgb 13.0 GM/dL (11.7-16.9) 02/28/17 06:00 Hct 39.1 % (35.4-49) 02/28/17 06:00 MCV 87.7 fl (80-96) 02/28/17 06:00 MCH 29.2 pg (25.7-33.7) 02/28/17 06:00 MCHC 33.3 g/dl (32.0-35.9) 02/28/17 06:00 RDW 16.7 % (11.9-15.9) H 02/28/17 06:00 Plt Count 363 K/MM3 (134-434) D 02/28/17 06:00 MPV 8.1 fl (7.5-11.1) 02/28/17 06:00 Sodium 141 mmol/L (136-145) 02/28/17 06:00 Potassium 4.2 mmol/L (3.5-5.1) 02/28/17 06:00 Chloride 103 mmol/L (98-107) 02/28/17 06:00 Carbon Dioxide 31 mmol/L (21-32) 02/28/17 06:00 Anion Gap Y 02/28/17 06:00 BUN 9 mg/dL (7-18) 02/28/17 06:00 Creatinine 0.8 mg/dL (0.7-1.3) 02/28/17 06:00 Creat Clearance w eGFR > 60 (>60) 02/28/17 06:00 Random Glucose 95 mg/dL (74-106) 02/28/17 06:00 Calcium 9.3 mg/dL (8.5-10.1) 02/28/17 06:00 Total Bilirubin 0.3 mg/dL (0.2-1.0) D 02/28/17 06:00 AST 40 U/L (15-37) H D 02/28/17 06:00 ALT 53 U/L (12-78) D 02/28/17 06:00 Alkaline Phosphatase 88 U/L (45-117) 02/28/17 06:00 Total Protein 7.3 g/dl (6.4-8.2) 02/28/17 06:00 Albumin 3.6 g/dl (3.4-5.0) 02/28/17 06:00 Urine Color Lt. yellow 02/27/17 20:56 Urine Appearance Clear 02/27/17 20:56 Urine pH 6.0 (5.0-8.0) 02/27/17 20:56 Ur Specific Carbon 1.025 (1.005-1.025) 02/27/17 20:56 Urine Protein Negative (NEGATIVE) 02/27/17 20:56 Urine Glucose (UA) Negative (NEGATIVE) 02/27/17 20:56 Urine Ketones Negative (NEGATIVE) 02/27/17 20:56 Urine Blood Negative (NEGATIVE) 02/27/17 20:56 Urine Nitrite Negative (NEGATIVE) 02/27/17 20:56 Urine Bilirubin Negative (NEGATIVE) 02/27/17 20:56 Urine Urobilinogen 0.2 mg/dL (0.2-1.0) 02/27/17 20:56 Ur Leukocyte Esterase Negative (NEGATIVE) 02/27/17 20:56 Carbamazepine 2.5 ug/ml (4.0-12.0) L* 02/28/17 06:00 RPR Titer Nonreactive (NONREACTIVE) 02/28/17 06:00 HIV 1&2 Antibody Screen Negative 02/27/17 13:00 HIV P24 Antigen Negative 02/27/17 13:00 lab noted Laboratory Last Values WBC 9.1 K/mm3 (4.0-10.0) 02/28/17 06:00 RBC 4.45 M/mm3 (4.00-5.60) 02/28/17 06:00 Hgb 13.0 GM/dL (11.7-16.9) 02/28/17 06:00 Hct 39.1 % (35.4-49) 02/28/17 06:00 MCV 87.7 fl (80-96) 02/28/17 06:00 MCH 29.2 pg (25.7-33.7) 02/28/17 06:00 MCHC 33.3 g/dl (32.0-35.9) 02/28/17 06:00 RDW 16.7 % (11.9-15.9) H 02/28/17 06:00 Plt Count 363 K/MM3 (134-434) D 02/28/17 06:00 MPV 8.1 fl (7.5-11.1) 02/28/17 06:00 Sodium 141 mmol/L (136-145) 02/28/17 06:00 Potassium 4.2 mmol/L (3.5-5.1) 02/28/17 06:00 Chloride 103 mmol/L (98-107) 02/28/17 06:00 Carbon Dioxide 31 mmol/L (21-32) 02/28/17 06:00 Anion Gap Y 02/28/17 06:00 BUN 9 mg/dL (7-18) 02/28/17 06:00 Creatinine 0.8 mg/dL (0.7-1.3) 02/28/17 06:00 Creat Clearance w eGFR > 60 (>60) 02/28/17 06:00 Random Glucose 95 mg/dL (74-106) 02/28/17 06:00 Calcium 9.3 mg/dL (8.5-10.1) 02/28/17 06:00 Total Bilirubin 0.3 mg/dL (0.2-1.0) D 02/28/17 06:00 AST 40 U/L (15-37) H D 02/28/17 06:00 ALT 53 U/L (12-78) D 02/28/17 06:00 Alkaline Phosphatase 88 U/L (45-117) 02/28/17 06:00 Total Protein 7.3 g/dl (6.4-8.2) 02/28/17 06:00 Albumin 3.6 g/dl (3.4-5.0) 02/28/17 06:00 Urine Color Lt. yellow 02/27/17 20:56 Urine Appearance Clear 02/27/17 20:56 Urine pH 6.0 (5.0-8.0) 02/27/17 20:56 Ur Specific Carbon 1.025 (1.005-1.025) 02/27/17 20:56 Urine Protein Negative (NEGATIVE) 02/27/17 20:56 Urine Glucose (UA) Negative (NEGATIVE) 02/27/17 20:56 Urine Ketones Negative (NEGATIVE) 02/27/17 20:56 Urine Blood Negative (NEGATIVE) 02/27/17 20:56 Urine Nitrite Negative (NEGATIVE) 02/27/17 20:56 Urine Bilirubin Negative (NEGATIVE) 02/27/17 20:56 Urine Urobilinogen 0.2 mg/dL (0.2-1.0) 02/27/17 20:56 Ur Leukocyte Esterase Negative (NEGATIVE) 02/27/17 20:56 Carbamazepine 2.5 ug/ml (4.0-12.0) L* 02/28/17 06:00 RPR Titer Nonreactive (NONREACTIVE) 02/28/17 06:00 HIV 1&2 Antibody Screen Negative 02/27/17 13:00 HIV P24 Antigen Negative 02/27/17 13:00 - Treatment Hospital Course: Detox Protocol Followed, Responded well Patient has Accepted a Rehab Referral to: possible [facility] - Medication Discharge Medications: Ambulatory Orders Carbamazepine [Tegretol -] 200 mg PO BID #60 tablet 11/06/16 Gabapentin 800 mg PO TID #90 tablet 11/06/16 Albuterol Sulfate Inhaler - [Ventolin HFA Inhaler -] 2 puff IH Q4H PRN #1 inhaler 01/25/17 Olanzapine [Zyprexa -] 20 mg PO DAILY 02/27/17 Prazosin HCl [Minipress -] 2 mg PO HS 02/27/17 Albuterol Sulfate Inhaler - [Ventolin HFA Inhaler -] 2 puff IH Q4H PRN #0 inhaler 02/28/17 Olanzapine [Zyprexa -] 20 mg PO HS #30 tablet 02/28/17 - Diagnosis (1) Alcohol dependence with uncomplicated withdrawal Status: Acute (2) Cocaine dependence, uncomplicated Status: Chronic (3) Asthma Status: Chronic Qualifiers: Asthma severity: mild intermittent Asthma complication type: with status asthmaticus Qualified Code(s): J45.22 - Mild intermittent asthma with status asthmaticus (4) Chronic low back pain with left-sided sciatica Status: Chronic Qualifiers: Back pain laterality: left Qualified Code(s): M54.42 - Lumbago with sciatica, left side; G89.29 - Other chronic pain (5) Nicotine dependence Status: Acute (6) Obesity (BMI 30-39.9) Status: Chronic (7) Bipolar II disorder Status: Suspected - AMA Did Patient Leave Against Medical Advice: Yes
[2017-02-28] MEDS ORDERED: OLANZapine 10 MG TABLET PO SCH (22:00)
[2017-02-28] MEDS ORDERED: chlordiazePOXIDE HCL 25 MG CAPSULE PO SCH (23:00)
[2017-03-01] MEDS ORDERED: chlordiazePOXIDE 5 MG CAPSULE PO SCH (23:00)
[2017-03-02] MEDS ORDERED: chlordiazePOXIDE HCL 10 MG CAPSULE PO SCH (23:00)
== END 2017-02-28 18:00 | disposition left against medical advice (07) | DRG 894 ==
LOC: YASAS 10:57 → Y6N 17:13 → Y3N 02-28 17:47
PROVIDERS: ADMIT Internal Medicine; ATTEND Internal Medicine
PROC: HZ2ZZZZ Detoxification Services for Substance Abuse Treatment (ICD-10-PCS; principal; 2017-02-27)
DX: F10.230 Alcohol dependence with withdrawal, uncomplicated (principal); F14.20 Cocaine dependence, uncomplicated; F31.81 Bipolar II disorder; J45.22 Mild intermittent asthma with status asthmaticus; F17.210 Nicotine dependence, cigarettes, uncomplicated; F19.24 Other psychoactive substance dependence with psychoactive substance-induced mood disorder; M54.42 Lumbago with sciatica, left side; G89.29 Other chronic pain; E66.9 Obesity, unspecified; Z68.38 Body mass index [BMI] 38.0-38.9, adult; R00.0 Tachycardia, unspecified; Z91.14 Patient's other noncompliance with medication regimen; Z91.018 Allergy to other foods; Z86.69 Personal history of other diseases of the nervous system and sense organs; Z91.5 Personal history of self-harm
CPT/HCPCS: 36415; 80053; 80156; 81003; 85027; 86593; 87389; 93005; 93010

== ENCOUNTER 2017-09-26 20:42 | Emergency (ER) | payer MEDICARE ==
[2017-09-26 20:56] VITALS: BMI 47.5
[2017-09-26] MEDS ORDERED: IBUPROFEN 400 MG TABLET (FP) PO ONE ×2 (21:24→23:34)
[2017-09-26] MEDS ORDERED: PENICILLIN V POTASSIUM 500 MG TABLET PO ONE (21:25)
--- NOTE | 2017-09-26 21:25 | PDOC ---
History of Present Illness - General History Source: Patient Exam Limitations: No Limitations - History of Present Illness Initial Comments: 09/26/17 21:51 The patient is a 32-year-old male, with a long history of alcohol and nicotine dependence, chronic back pain, and bipolar II, who presents to the ED with toothache today. The patient states that he is experiencing throbbing/achy pain to his right bottom molar. He rates the pain a 10/10 in severity. He also reports swelling of both feet that has made it difficult to ambulate due to pain. The patient denies any fever, chills, nausea, vomiting, diarrhea, or abdominal pain. Allergies: NKDA Social History: Long history of alcohol and nicotine dependence Surgical History: No reported surgeries PCP: N/A <Ana M Mckeon - Last Filed: 09/26/17 22:10> - General History Source: Patient <Terrance Alvarez - Last Filed: 09/27/17 07:04> - General Chief Complaint: Toothache Stated Complaint: PAIN Time Seen by Provider: 09/26/17 21:16 Past History <Ana M Mckeon - Last Filed: 09/26/17 22:10> - Past Medical History Anemia: No Asthma: Yes Cancer: No Cardiac Disorders: No CVA: No COPD: No CHF: No Dementia: No Diabetes: No GI Disorders: No Disorders: No HTN: No Hypercholesterolemia: No Kidney Stones: No Liver Disease: No Seizures: Yes (BY HISTORY) Thyroid Disease: No - Surgical History Abdominal Surgery: No Appendectomy: No Cardiac Surgery: No Cholecystectomy: No Lung Surgery: No Neurologic Surgery: No Orthopedic Surgery: Yes (LEFT KNEE,TORN ACL AND MENISCUS since age 8 years) - Reproductive History Testicular Surgery: No - Suicide/Smoking/Psychosocial Hx Smoking History: Current every day smoker Have you smoked in the past 12 months: Yes Number of Cigarettes Smoked Daily: 20 Cigars Per Day: 15 Information on smoking cessation initiated: No 'Breaking Loose' booklet given: 02/27/17 Hx Alcohol Use: No Drug/Substance Use Hx: No Substance Use Type: Alcohol, Cocaine Hx Substance Use Treatment: Yes (01/23-01/25/17 [facility]) <Terrance Alvarez - Last Filed: 09/27/17 07:04> - Past Medical History Allergies/Adverse Reactions: Allergies Allergy/AdvReac Type Severity Reaction Status Date / Time No Known Drug Allergies Allergy Verified 09/26/17 20:54 Pork/Porcine Containing AdvReac Severe Nausea Verified 09/26/17 20:54 Products trazodone AdvReac Severe priapism Verified 09/26/17 20:54 Home Medications: Ambulatory Orders Carbamazepine [Tegretol -] 200 mg PO BID #60 tablet 11/06/16 Gabapentin 800 mg PO TID #90 tablet 11/06/16 Albuterol Sulfate Inhaler - [Ventolin HFA Inhaler -] 2 puff IH Q4H PRN #1 inhaler 01/25/17 Olanzapine [Zyprexa -] 20 mg PO DAILY 02/27/17 Prazosin HCl [Minipress -] 2 mg PO HS 02/27/17 Albuterol Sulfate Inhaler - [Ventolin HFA Inhaler -] 2 puff IH Q4H PRN #0 inhaler 02/28/17 Olanzapine [Zyprexa -] 20 mg PO HS #30 tablet 02/28/17 Ibuprofen 800 mg PO TID #30 tablet 09/27/17 Penicillin V Potassium [Pen Vee K -] 500 mg PO TID #30 tablet 09/27/17 Review of Systems - Review of Systems Able to Perform ROS?: Yes Comments:: 09/26/17 21:52 CONSTITUTIONAL: Absent: fever, no chills, no fatigue EYES: Absent: visual changes ENT: Present: toothache Absent: ear pain, no sore throat CARDIOVASCULAR: Absent: chest pain, no palpitations RESPIRATORY: Absent: cough, no SOB GI: Absent: abdominal pain, no nausea, no vomiting, no constipation, no diarrhea GENITOURINARY: Absent: dysuria, no frequency, no hematuria MUSKULOSKELETAL: Absent: back pain, no arthralgia, no myalgia SKIN: Absent: rash NEURO: Absent: headache <Ana M Mckeon - Last Filed: 09/26/17 22:10> *Physical Exam - Vital Signs Last Vital Signs Temp Pulse Resp BP Pulse Ox 98.9 F 104 H 14 153/117 99 09/26/17 20:55 09/26/17 20:55 09/26/17 20:55 09/26/17 20:55 09/26/17 20:55 - Physical Exam Comments: 09/26/17 21:57 GENERAL: Well-appearing, well-nourished. No apparent distress. (+)Obese. HEENT: (+)Poor dentition, broken posterior molars with surrounding erythema. No facial swelling. Normocephalic, atraumatic. PERRL, EOM intact. CARDIOVASCULAR: Normal S1, S2. Regular rate and rhythm. PULMONARY: Clear to auscultation bilaterally. ABDOMEN: Soft, non-distended, non-tender. EXTREMITIES: (+)Mild Venous changes from the knee to base of feet; feet are tender and slightly erythematous. Normal ROM in all four extremities. SKIN: Warm, dry. No rash NEUROLOGICAL: No focal neurological deficits. <Ana M Mckeon - Last Filed: 09/26/17 22:10> - Vital Signs Last Vital Signs Temp Pulse Resp BP Pulse Ox 98.9 F 104 H 14 153/117 99 09/26/17 20:55 09/26/17 20:55 09/26/17 20:55 09/26/17 20:55 09/26/17 20:55 <Terrance Alvarez - Last Filed: 09/27/17 07:04> ED Treatment Course - LABORATORY CBC & Chemistry Diagram: 09/26/17 23:50 09/26/17 23:50 <Terrance Alvarez - Last Filed: 09/27/17 07:04> Medical Decision Making - Medical Decision Making 09/27/17 07:04 Pt is medically cleared for [facility] <Terrance Alvarez - Last Filed: 09/27/17 07:04> *DC/Admit/Observation/Transfer - Attestations Scribe Attestion: 09/26/17 22:12 Documentation prepared by Ana M Mckeon, acting as medical program specialist for Terrance Alvarez MD. <Ana M Mckeon - Last Filed: 09/26/17 22:10> - Discharge Dispostion Admit: No <Terrance Alvarez - Last Filed: 09/27/17 07:04> Diagnosis at time of Disposition: Tooth decay, Alcohol dependence with uncomplicated withdrawal - Discharge Dispostion Disposition: HOME Condition at time of disposition: Stable - Prescriptions Prescriptions: Ibuprofen 800 mg PO TID #30 tablet Penicillin V Potassium [Pen Vee K -] 500 mg PO TID #30 tablet - Patient Instructions Printed Discharge Instructions: DI for Tooth Decay
[2017-09-26] MEDS ORDERED: KETOROLAC TROMETHAMINE 30 MG/1 ML VIAL IVPUSH ONE (21:27)
[2017-09-26] MEDS ORDERED: KETOROLAC TROMETHAMINE 30 MG/1 ML VIAL ONE (23:34)
[2017-09-27 00:14] LABS: BASO % 0.5 % (0-2.0); EOS % 3.1 % (0-4.5); HEMATOCRIT 37.9 % (35.4-49); HEMOGLOBIN 12.6 GM/dL (11.7-16.9); LYMPH % 17.9 % (8-40); MCH 30.5 pg (25.7-33.7); MCHC 33.4 g/dl (32.0-35.9); MEAN CELL VOLUME 91.3 fl (80-96); MEAN PLT VOLUME 7.8 fl (7.5-11.1); NEUT % 68.5 % (42.8-82.8); PLATELET COUNT 272 K/MM3 (134-434); RBC 4.15 M/mm3 (4.00-5.60); WHITE BLOOD COUNT 9.2 K/mm3 (4.0-10.0)
[2017-09-27 00:27] LABS: INR 1.12 (0.82-1.09); PROTHROMBIN TIME (PATIENT) 12.7 SEC (9.98-11.88)
[2017-09-27 00:37] LABS: ALK PHOS 77 U/L (45-117); ANION GAP 10 (8-16); BILIRUBIN,TOTAL 0.3 mg/dL (0.2-1.0); BLOOD UREA NITROGEN 11 mg/dL (7-18); CALCIUM 8.4 mg/dL (8.5-10.1); CHLORIDE 106 mmol/L (98-107); CO2 26 mmol/L (21-32); CREATININE 0.8 mg/dL (0.7-1.3); GLUCOSE,RANDOM 103 mg/dL (74-106); POTASSIUM 4.2 mmol/L (3.5-5.1); SGOT/AST 83 U/L (15-37); SGPT/ALT 47 U/L (12-78); SODIUM 142 mmol/L (136-145); TOT PROT 6.7 g/dl (6.4-8.2)
[2017-09-27] MEDS ORDERED: KETOROLAC TROMETHAMINE 30 MG/1 ML VIAL IVPUSH ONE (07:01)
[2017-09-27] MEDS ORDERED: PENICILLIN V POTASSIUM 500 MG TABLET PO ONE (07:01)
[2017-09-27] MEDS ORDERED: KETOROLAC TROMETHAMINE 60 MG/2 ML VIAL ONE (07:10)
[2017-09-27 07:13] VITALS: BP 140/79; PULSE 91; TEMP 97.8
== END 2017-09-27 07:21 | disposition home or self-care (01) ==
LOC: JER 20:42
PROC: 3E0333Z Introduction of Anti-inflammatory into Peripheral Vein, Percutaneous Approach (ICD-10-PCS; principal; 2017-09-26)
DX: K02.9 Dental caries, unspecified (principal); F10.20 Alcohol dependence, uncomplicated; F17.210 Nicotine dependence, cigarettes, uncomplicated; F31.81 Bipolar II disorder; M54.89 Other dorsalgia; Z86.69 Personal history of other diseases of the nervous system and sense organs
CPT/HCPCS: 36415; 80053; 85025; 85610; 93970-TC; 99283-25